=== PATIENT | female | born 1940 | race Caucasian/White ===

== ENCOUNTER 2016-07-05 22:20 | Emergency (ER) | payer OTHER ==
--- NOTE | 2016-07-06 04:01 | ED ORDER SUMMARY ---
..... Patient: NIKOLAY BARBOSA OrderSheet [facility] VisitID: [id number] [address] [place] [address] 75y, F Registration Date/Time: 07/05/2016 ORDER SHEET Weight: 69.8 kg (stated) Allergies: PCN, Sulfa Drugs GENERAL ORDERS: CBC w Diff Urgent (23:02 07/05/2016 DDavis R.N. per protocol) (Ack 23:04 Barbieekimana) (23:09 DDavis R.N.) CMP Urgent (23:02 07/05/2016 DDavis R.N. per protocol) (Ack 23:04 Luhimana) (23:09 DDavis R.N.) UA-Culture if indicated Urgent (23:02 07/05/2016 DDavis R.N. per protocol) (Ack 23:04 Silvina) (23:57 DDavis R.N.) POC Glucose (23:02 07/05/2016 DDavis R.N. per protocol) (23:09 DDavis R.N.) EKG - ER Stat (23:02 07/05/2016 DDavis R.N. per protocol) (Ack 23:04 Luhimana) (23:09 DDavis R.N.) Troponin-I Urgent (23:26 07/05/2016 Sravani HAN) (23:27 DDavis R.N.) TSH Urgent (23:26 07/05/2016 Sravani HAN) (23:27 DDavis R.N.) Lipase Urgent (23:32 07/05/2016 Sravani HAN) (Ack 23:33 Silvina) (23:44 DDavis R.N.) Troponin-I Urgent (01:51 07/06/2016 Sravani HAN) (Ack 1:57 Silvina) (4:09 JDeElena R.N.) US Abdomen Limited (Yes) Urgent (01:52 07/06/2016 Sravani HAN) (Ack 1:57 Silvina) (3:48 JDeElena R.N.) MEDICATION ORDERS: Phenergan IV 25 mg (NOW) (01:50 07/06/2016 Sravani HAN) (2:10 DDavis R.N.) IV FLUIDS: IV Saline Lock (23:02 07/05/2016 DDavis R.N. per protocol) (23:09 DDavis R.N.) IV NS : initial bolus 1000 mL (1000 mL/hr), then none - (NOW) (23:07/05/2016 Sravani HAN) (23:44 DDavis R.N.) Zofran IV 8 mg (NOW) (23:07/05/2016 Sravani HAN) (23:44 DDavis R.N.) ORDER SHEET NOTES: [Electronically signed by Teja Arteaga R.N. (04:19 07/06/2016)] [Electronically signed by Ivania Cedeño MD (13:07 07/14/2016)] [Electronically locked/signed by Teja Arteaga R.N. (04:19 07/06/2016)]
--- NOTE | 2016-07-06 04:01 | ED CLINICAL REPORT ---
Clinical Report - Physicians/Mid Levels [facility] [address] [place] [address] 07/05/2016 22:21 Patient: NIKOLAY BARBOSA Time Seen: 22:53. Arrived- By private vehicle. Historian- patient. HISTORY OF PRESENT ILLNESS Chief Complaint: VOMITING. This started about 2 days ago and is still present. No recent travel. She has had nausea, vomiting and moderate abdominal pain. The pain is described as located in the epigastrium. No diarrhea, black stools, bloody stools, constipation or flank pain. No history of possible bad food exposure, known contact with a sick individual or change in routine. Has not recently been camping or on antibiotics. The illness is described as moderate. Similar symptoms previously: None. Recent medical care: Not recently seen/assessed. REVIEW OF SYSTEMS No fever, muscle aches, difficulty with urination, dark urine or headache. No dizziness, sore throat, cough, chest pain or difficulty breathing. No excessive urination, skin rash, jaundice, back pain or fainting episodes. No blurred vision. All systems otherwise negative, except as recorded above. PAST HISTORY Problems: Asthma. Lump in lt breast, and lt flank pain. Diabetes Mellitus. Hypertension. Tetanus Status. LNMP - Last Normal Menstrual Period. Additional Surgeries: Leg surgery. Tissue removed from stomach. Wrist surgery. Medications: Metoprolol Succinate ER Oral (Tablet Extended Release 24 Hour 25 mg) 1 tablet, 50mg , day. Ranitidine HCl Oral 150 mg, daily. Zetia Oral (Tablet 10 mg) 1 tablet, day. Amitriptyline HCl Oral 10 mg, at bedtime. Fosamax Oral 70 mg, weekly. Gabapentin Oral 600mg tid . Hydrochlorothiazide Oral (Tablet 25 mg) 1 tablet, daily. Insulin Regular Human Injection 20units morn, 30units noon, 30units leslye . Lantus Subcutaneous 40units , 2x a day. Levothyroxine Sodium Oral 88 mcg, daily. Lisinopril Oral 40 mg, 2x a day. Allergies: PCN. Sulfa Drugs. SOCIAL HISTORY Never smoker. No alcohol use or drug use. ADDITIONAL NOTES The nursing notes have been reviewed. PHYSICAL EXAM Vital Signs: 07/05/2016 22:46 BP: 155/81. HR: 87. RR: 24. O2 saturation: 99%. Temp: 96.8 F. Have been reviewed. Appearance: Alert. (Pt is intermittently groaning and actively vomiting.). Eyes: Pupils equal, round and reactive to light. Eyes normal inspection. ENT: Nose normal. Neck: Normal inspection. CVS: Normal heart rate and rhythm. Heart sounds normal. Pulses normal. Respiratory: No respiratory distress. Breath sounds normal. Abdomen: Soft. Moderate tenderness in the epigastric area. No guarding or rebound tenderness. Back: Normal inspection. No CVA tenderness. Skin: Skin warm and dry. Normal skin color. No rash. Normal skin turgor. Extremities: Extremities exhibit normal ROM. No lower extremity edema. Neuro: No motor deficit. No sensory deficit. (Grossly oriented.). LABS, X-RAYS, AND EKG EKG: EKG time: (2307). No acute ischemia. Normal sinus rhythm. Rate: 77. Normal P waves. Normal DEMETRI. Normal QRS complex. Normal axis. Normal QT and QTc. Non-specific ST segment / T wave abnormalities. Prior EKG unavailable. The study has been interpreted contemporaneously by me. The study has been independently viewed by me. The EKG appears to be a good tracing. I agree with and confirm the computer reading of the EKG. Rhythm Strip #1: Time: (2311). Rate= 81. Normal sinus rhythm. Regular rhythm. Narrow QRS complexes. No ectopy. Conduction normal. Normal ST segments and T waves. The study was interpreted by me. Laboratory Tests: UA-Culture if indicated: (HEMA: 07/06/2016 00:00) ( MsgRcvd 07/06/2016 00:12) Final results Test Result Flag Units (Reference) URINE COLOR YELLOW URINE APPEARANCE CLEAR URINE GLUCOSE 1+ (NEGATIVE) URINE BILIRUBIN NEGATIVE (NEGATIVE) URINE KETONE NEGATIVE (NEGATIVE) URINE SPECIFIC GRAVITY 1.020 (1.010-1.030) URINE PH 7.5 (5.0-8.0) URINE PROTEIN 3+ (NEGATIVE) URINE UROBILINOGEN 0.2 EU/dL (0.2-1.0) URINE NITRITE NEGATIVE (NEGATIVE) URINE BLOOD 2+ (NEGATIVE) URINE LEUK ESTERASE NEGATIVE (NEGATIVE) URINE RBC 5-10 rbc/hpf (0-1) URINE WBC 0-1 wbc/hpf (0-1) URINE EPITHELIAL CELLS 0-1 EPI/hpf (0-5) URINE BACTERIA TRACE (<1+) (NONE SEEN) URINE COMMENT CULT NOT INDICATED URINE CULTURES ARE SET-UP BASED ON THE FOLLOWING CRITERIA:POSITIVE NITRITEPOSITIVE LEUKOCYTE ESTERASEGREATER THAN 10 WHITE BLOOD CELLSMODERATE (2+) OR GREATER BACTERIA Troponin-I: (HEMA: 07/06/2016 02:30) ( [facility] 07/06/2016 02:53) Final results Test Result Flag Units (Reference) TROPONIN I 0.08 ng/mL (0.00-1.5) TROPONIN REFERENCE RANGE:<0.1 NEGATIVE0.1-1.5 INDETERMINANT>1.5 POSITIVE CBC w Diff: (HEMA: 07/05/2016 23:00) ( [facility] 07/05/2016 23:10) Final results Test Result Flag Units (Reference) WHITE BLOOD COUNT 9.4 K/uL (4.5-11.5) RED BLOOD COUNT 5.07 M/uL (4.00-5.20) HEMOGLOBIN 14.7 gm/dL (12.0-16.0) HEMATOCRIT 45.3 % (36.0-46.0) MEAN CELL VOLUME 89 fL (80-100) MEAN CORPUSCULAR HGB 29 pg (26-34) MEAN CORPUSCULAR HGB CONC 33 g/dL (31-37) RED CELL DISTRIBUTION WIDTH 13.4 % (11.6-14.8) PLATELET COUNT 322 K/uL (150-400) LYMPH % 20.3 L % (25-40) MONO % 3.7 % (3-14) GRANULOCYTE % 76.0 (53-90) Lipase: (HEMA: 07/05/2016 23:00) ( [facility] 07/05/2016 23:49) Final results Test Result Flag Units (Reference) LIPASE 132 U/L (73-393) TSH: (HEMA: 07/05/2016 23:00) ( [facility] 07/05/2016 23:49) Final results Test Result Flag Units (Reference) THYROID STIMULATING HORMONE 4.015 H uIU/mL (0.30-3.74) Troponin-I: (HEMA: 07/05/2016 23:00) ( [facility] 07/05/2016 23:43) Final results Test Result Flag Units (Reference) TROPONIN I 0.07 ng/mL (0.00-1.5) TROPONIN REFERENCE RANGE:<0.1 NEGATIVE0.1-1.5 INDETERMINANT>1.5 POSITIVE CMP: (HEMA: 07/05/2016 23:00) ( [facility] 07/05/2016 23:25) Final results Test Result Flag Units (Reference) GLUCOSE 252 H mg/dL (70-110) BUN 37 H mg/dL (7-18) CREATININE 1.7 H mg/dL (0.6-1.3) Estimated GFR 31.14 mL/min Estimated GFR- 37.74 mL/min Note: Persistent reduction over 3 months in eGFR<60 mL/min/1.73 m2 defines CKD. Patients with eGFR values>=60 mL/min/1.73 m2 may also have CKD if evidence ofpersistent proteinuria. Additional information may be foundat www.kidney.org. SODIUM 138 mmol/L (136-145) POTASSIUM 4.4 mmol/L (3.5-5.1) CHLORIDE 100 mmol/L (98-107) CARBON DIOXIDE 28 mmol/L (21-32) CALCIUM 10.1 mg/dL (8.5-10.1) TOTAL PROTEIN 8.2 g/dL (6.4-8.2) ALBUMIN 3.1 L g/dL (3.3-5.0) BILIRUBIN, TOTAL 0.4 mg/dL (0.0-1.0) ALKALINE PHOSPHATASE 91 U/L (46-116) AST (SGOT) 19 U/L (15-37) ALT (SGPT) 24 U/L (12-78) . Pulse Oximetry: 07/05/2016 22:46 O2 saturation: 99%. (FIO2 - room air). Interpretation: normal. PROGRESS AND PROCEDURES Course of Care: PT was given IV fluids and Zofran for symptomatic relief. She was worked up initially with labs and an EKG. US showed no stones or gall bladder abnormalities. Labs were unremarkable, other than a slightly higher than negative troponin. Due to this result, the troponin was repeated, and was without significant change when drawn 2 1/2 hours later. Symptoms had been present for the past 2 days, and I felt that a cardiac source was unlikely, given this and the negligible change in troponin over some hours' time. Pt was improved in condition, and no emergent condition was identified. Patient counseled in person regarding the patient's stable condition, test results and diagnosis. Old medical records reviewed. Disposition: Discharged. Condition: stable and improved. CLINICAL IMPRESSION Vomiting with nausea. INSTRUCTIONS Drink plenty of fluids. (Your labs look good, overall. Your repeat heart labs did not raise concern for a heart attack. Your ultrasound shows some thick material in your gall bladder, which could turn into stones at some point; however, there are no gall stones now.). Warnings: GENERAL WARNINGS: Return or contact your physician immediately if your condition worsens or changes unexpectedly, if not improving as expected, or if other problems arise. Your Current Medications: CONTINUE TAKING THE FOLLOWING MEDICATIONS: Amitriptyline HCl Oral : 10 mg at bedtime. Fosamax Oral : 70 mg weekly. Gabapentin Oral : 600mg tid. Hydrochlorothiazide Oral : Tablet 25 mg, 1 tablet daily. Insulin Regular Human Injection : 20units morn, 30units noon, 30units leslye. Lantus Subcutaneous : 40units 2x a day. Levothyroxine Sodium Oral : 88 mcg daily. Lisinopril Oral : 40 mg 2x a day. Metoprolol Succinate ER Oral : Tablet Extended Release 24 Hour 25 mg, 1 tablet, 50mg day. Ranitidine HCl Oral : 150 mg daily. Zetia Oral : Tablet 10 mg, 1 tablet day. Prescription Medications: Zofran (orally disintegrating tablets) 4 mg: take 1-2 orally every 6 hours as needed for nausea. Dispense fifteen (15). No refill. Substitution is permissible. Follow-up: Follow up with your doctor. Call for the next available appointment. Reason for referral: Follow up ER visit. Understanding of the discharge instructions verbalized by patient. (Electronically signed by Ivania Cedeño MD 07/14/2016 13:07)
--- NOTE | 2016-07-06 04:01 | ED CLINICAL REPORT ---
Clinical Report - Physicians/Mid Levels [facility] [address] [place] [address] 07/05/2016 22:21 Patient: NIKOLAY BARBOSA Time Seen: 22:53. Arrived- By private vehicle. Historian- patient. HISTORY OF PRESENT ILLNESS Chief Complaint: VOMITING. This started about 2 days ago and is still present. No recent travel. She has had nausea, vomiting and moderate abdominal pain. The pain is described as located in the epigastrium. No diarrhea, black stools, bloody stools, constipation or flank pain. No history of possible bad food exposure, known contact with a sick individual or change in routine. Has not recently been camping or on antibiotics. The illness is described as moderate. Similar symptoms previously: None. Recent medical care: Not recently seen/assessed. REVIEW OF SYSTEMS No fever, muscle aches, difficulty with urination, dark urine or headache. No dizziness, sore throat, cough, chest pain or difficulty breathing. No excessive urination, skin rash, jaundice, back pain or fainting episodes. No blurred vision. All systems otherwise negative, except as recorded above. PAST HISTORY Problems: Asthma. Lump in lt breast, and lt flank pain. Diabetes Mellitus. Hypertension. Tetanus Status. LNMP - Last Normal Menstrual Period. Additional Surgeries: Leg surgery. Tissue removed from stomach. Wrist surgery. Medications: Metoprolol Succinate ER Oral (Tablet Extended Release 24 Hour 25 mg) 1 tablet, 50mg , day. Ranitidine HCl Oral 150 mg, daily. Zetia Oral (Tablet 10 mg) 1 tablet, day. Amitriptyline HCl Oral 10 mg, at bedtime. Fosamax Oral 70 mg, weekly. Gabapentin Oral 600mg tid . Hydrochlorothiazide Oral (Tablet 25 mg) 1 tablet, daily. Insulin Regular Human Injection 20units morn, 30units noon, 30units leslye . Lantus Subcutaneous 40units , 2x a day. Levothyroxine Sodium Oral 88 mcg, daily. Lisinopril Oral 40 mg, 2x a day. Allergies: PCN. Sulfa Drugs. SOCIAL HISTORY Never smoker. No alcohol use or drug use. ADDITIONAL NOTES The nursing notes have been reviewed. PHYSICAL EXAM Vital Signs: 07/05/2016 22:46 BP: 155/81. HR: 87. RR: 24. O2 saturation: 99%. Temp: 96.8 F. Have been reviewed. Appearance: Alert. (Pt is intermittently groaning and actively vomiting.). Eyes: Pupils equal, round and reactive to light. Eyes normal inspection. ENT: Nose normal. Neck: Normal inspection. CVS: Normal heart rate and rhythm. Heart sounds normal. Pulses normal. Respiratory: No respiratory distress. Breath sounds normal. Abdomen: Soft. Moderate tenderness in the epigastric area. No guarding or rebound tenderness. Back: Normal inspection. No CVA tenderness. Skin: Skin warm and dry. Normal skin color. No rash. Normal skin turgor. Extremities: Extremities exhibit normal ROM. No lower extremity edema. Neuro: No motor deficit. No sensory deficit. (Grossly oriented.). LABS, X-RAYS, AND EKG EKG: EKG time: (2307). No acute ischemia. Normal sinus rhythm. Rate: 77. Normal P waves. Normal DEMETRI. Normal QRS complex. Normal axis. Normal QT and QTc. Non-specific ST segment / T wave abnormalities. Prior EKG unavailable. The study has been interpreted contemporaneously by me. The study has been independently viewed by me. The EKG appears to be a good tracing. I agree with and confirm the computer reading of the EKG. Rhythm Strip #1: Time: (2311). Rate= 81. Normal sinus rhythm. Regular rhythm. Narrow QRS complexes. No ectopy. Conduction normal. Normal ST segments and T waves. The study was interpreted by me. Laboratory Tests: UA-Culture if indicated: (HEMA: 07/06/2016 00:00) ( MsgRcvd 07/06/2016 00:12) Final results Test Result Flag Units (Reference) URINE COLOR YELLOW URINE APPEARANCE CLEAR URINE GLUCOSE 1+ (NEGATIVE) URINE BILIRUBIN NEGATIVE (NEGATIVE) URINE KETONE NEGATIVE (NEGATIVE) URINE SPECIFIC GRAVITY 1.020 (1.010-1.030) URINE PH 7.5 (5.0-8.0) URINE PROTEIN 3+ (NEGATIVE) URINE UROBILINOGEN 0.2 EU/dL (0.2-1.0) URINE NITRITE NEGATIVE (NEGATIVE) URINE BLOOD 2+ (NEGATIVE) URINE LEUK ESTERASE NEGATIVE (NEGATIVE) URINE RBC 5-10 rbc/hpf (0-1) URINE WBC 0-1 wbc/hpf (0-1) URINE EPITHELIAL CELLS 0-1 EPI/hpf (0-5) URINE BACTERIA TRACE (<1+) (NONE SEEN) URINE COMMENT CULT NOT INDICATED URINE CULTURES ARE SET-UP BASED ON THE FOLLOWING CRITERIA:POSITIVE NITRITEPOSITIVE LEUKOCYTE ESTERASEGREATER THAN 10 WHITE BLOOD CELLSMODERATE (2+) OR GREATER BACTERIA Troponin-I: (HEMA: 07/06/2016 02:30) ( [facility] 07/06/2016 02:53) Final results Test Result Flag Units (Reference) TROPONIN I 0.08 ng/mL (0.00-1.5) TROPONIN REFERENCE RANGE:<0.1 NEGATIVE0.1-1.5 INDETERMINANT>1.5 POSITIVE CBC w Diff: (HEMA: 07/05/2016 23:00) ( [facility] 07/05/2016 23:10) Final results Test Result Flag Units (Reference) WHITE BLOOD COUNT 9.4 K/uL (4.5-11.5) RED BLOOD COUNT 5.07 M/uL (4.00-5.20) HEMOGLOBIN 14.7 gm/dL (12.0-16.0) HEMATOCRIT 45.3 % (36.0-46.0) MEAN CELL VOLUME 89 fL (80-100) MEAN CORPUSCULAR HGB 29 pg (26-34) MEAN CORPUSCULAR HGB CONC 33 g/dL (31-37) RED CELL DISTRIBUTION WIDTH 13.4 % (11.6-14.8) PLATELET COUNT 322 K/uL (150-400) LYMPH % 20.3 L % (25-40) MONO % 3.7 % (3-14) GRANULOCYTE % 76.0 (53-90) Lipase: (HEMA: 07/05/2016 23:00) ( [facility] 07/05/2016 23:49) Final results Test Result Flag Units (Reference) LIPASE 132 U/L (73-393) TSH: (HEMA: 07/05/2016 23:00) ( [facility] 07/05/2016 23:49) Final results Test Result Flag Units (Reference) THYROID STIMULATING HORMONE 4.015 H uIU/mL (0.30-3.74) Troponin-I: (HEMA: 07/05/2016 23:00) ( [facility] 07/05/2016 23:43) Final results Test Result Flag Units (Reference) TROPONIN I 0.07 ng/mL (0.00-1.5) TROPONIN REFERENCE RANGE:<0.1 NEGATIVE0.1-1.5 INDETERMINANT>1.5 POSITIVE CMP: (HEMA: 07/05/2016 23:00) ( [facility] 07/05/2016 23:25) Final results Test Result Flag Units (Reference) GLUCOSE 252 H mg/dL (70-110) BUN 37 H mg/dL (7-18) CREATININE 1.7 H mg/dL (0.6-1.3) Estimated GFR 31.14 mL/min Estimated GFR- 37.74 mL/min Note: Persistent reduction over 3 months in eGFR<60 mL/min/1.73 m2 defines CKD. Patients with eGFR values>=60 mL/min/1.73 m2 may also have CKD if evidence ofpersistent proteinuria. Additional information may be foundat www.kidney.org. SODIUM 138 mmol/L (136-145) POTASSIUM 4.4 mmol/L (3.5-5.1) CHLORIDE 100 mmol/L (98-107) CARBON DIOXIDE 28 mmol/L (21-32) CALCIUM 10.1 mg/dL (8.5-10.1) TOTAL PROTEIN 8.2 g/dL (6.4-8.2) ALBUMIN 3.1 L g/dL (3.3-5.0) BILIRUBIN, TOTAL 0.4 mg/dL (0.0-1.0) ALKALINE PHOSPHATASE 91 U/L (46-116) AST (SGOT) 19 U/L (15-37) ALT (SGPT) 24 U/L (12-78) . Pulse Oximetry: 07/05/2016 22:46 O2 saturation: 99%. (FIO2 - room air). Interpretation: normal. PROGRESS AND PROCEDURES Course of Care: PT was given IV fluids and Zofran for symptomatic relief. She was worked up initially with labs and an EKG. US showed no stones or gall bladder abnormalities. Labs were unremarkable, other than a slightly higher than negative troponin. Due to this result, the troponin was repeated, and was without significant change when drawn 2 1/2 hours later. Symptoms had been present for the past 2 days, and I felt that a cardiac source was unlikely, given this and the negligible change in troponin over some hours' time. Pt was improved in condition, and no emergent condition was identified. Patient counseled in person regarding the patient's stable condition, test results and diagnosis. Old medical records reviewed. Disposition: Discharged. Condition: stable and improved. CLINICAL IMPRESSION Vomiting with nausea. INSTRUCTIONS Drink plenty of fluids. (Your labs look good, overall. Your repeat heart labs did not raise concern for a heart attack. Your ultrasound shows some thick material in your gall bladder, which could turn into stones at some point; however, there are no gall stones now.). Warnings: GENERAL WARNINGS: Return or contact your physician immediately if your condition worsens or changes unexpectedly, if not improving as expected, or if other problems arise. Your Current Medications: CONTINUE TAKING THE FOLLOWING MEDICATIONS: Amitriptyline HCl Oral : 10 mg at bedtime. Fosamax Oral : 70 mg weekly. Gabapentin Oral : 600mg tid. Hydrochlorothiazide Oral : Tablet 25 mg, 1 tablet daily. Insulin Regular Human Injection : 20units morn, 30units noon, 30units leslye. Lantus Subcutaneous : 40units 2x a day. Levothyroxine Sodium Oral : 88 mcg daily. Lisinopril Oral : 40 mg 2x a day. Metoprolol Succinate ER Oral : Tablet Extended Release 24 Hour 25 mg, 1 tablet, 50mg day. Ranitidine HCl Oral : 150 mg daily. Zetia Oral : Tablet 10 mg, 1 tablet day. Prescription Medications: Zofran (orally disintegrating tablets) 4 mg: take 1-2 orally every 6 hours as needed for nausea. Dispense fifteen (15). No refill. Substitution is permissible. Follow-up: Follow up with your doctor. Call for the next available appointment. Reason for referral: Follow up ER visit. Understanding of the discharge instructions verbalized by patient. (Electronically signed by Ivania Cedeño MD 07/14/2016 13:07)
--- NOTE | 2016-07-06 04:01 | ED NURSING NOTES ---
Clinical Report - Nurses [facility] [address] [place] [address] 07/05/2016 22:21 Patient: NIKLOAY BARBOSA TRIAGE Triage time 22:46. Acuity: LEVEL 3. Chief Complaint: VOMITING and CHILLS. Alert. --22:52 Cole Holder R.N. 22:46 07/05/16. BP: 155/81. HR: 87. RR: 24 (regular and unlabored). O2 saturation: 99%. Temp: 96.8 F (temporal). --22:52 Cole Holder R.N. Weight: 69.8 kg stated. Height/Length: 61 inches Estimated. BMI: 29.1. --22:54 Cole Holder R.N. Medications Amitriptyline HCl Oral 10 mg, at bedtime. Fosamax Oral 70 mg, weekly. Gabapentin Oral 600mg tid . Hydrochlorothiazide Oral (Tablet 25 mg) 1 tablet, daily. Insulin Regular Human Injection 20units morn, 30units noon, 30units leslye . Lantus Subcutaneous 40units , 2x a day. Levothyroxine Sodium Oral 88 mcg, daily. Lisinopril Oral 40 mg, 2x a day. --22:52 Cole Holder R.N. Metoprolol Succinate ER Oral (Tablet Extended Release 24 Hour 25 mg) 1 tablet, 50mg , day. Ranitidine HCl Oral 150 mg, daily. Zetia Oral (Tablet 10 mg) 1 tablet, day. --22:52 Cole Holder R.N. Allergies PCN. Sulfa Drugs. --22:47 Cole Holder R.N. History Arrived by private vehicle. Historian: patient. Accompanied by family. Onset. (). ( pt states "I haven't been able to keep anything down" Denies having other symptoms.). She has had nausea. --22:52 Cole Holder R.N. PROBLEMS: Asthma. Lump in lt breast, and lt flank pain. Bronchospasm. Bronchitis. Sprain. Diabetes Mellitus. Hypertension. Tetanus Status. LNMP - Last Normal Menstrual Period. --22:47 Cole Holder R.N. ADDITIONAL SURGERIES: Leg surgery. Tissue removed from stomach. Wrist surgery. --22:47 Cole Holder R.N. Interventions ID band on patient. To treatment room. --22:52 Cole Holder R.N. PHYSICAL ASSESSMENT Ambulatory to room. GENERAL / NEURO / PSYCH: Alert. Oriented X 4. Appears in pain. HEENT: Mucous membranes are pink. CVS: Capillary refill less than 2 seconds. GI / : Abdomen soft. SKIN: Skin is warm and dry. --22:54 Cole Holder R.N. ( Patient vomiting. Dr. Ivania Rocha (ER Doctor) notified.). --01:20 Cole Holder R.N. 01:20 07/06/16. BP: 196/70. HR: 86. RR: 24 (regular). O2 saturation: 100% on room air. --01:20 Cole Holder R.N. 02:11 07/06/16. BP: 157/93. HR: 88 (regular). RR: 20. O2 saturation: 100% on room air. --02:12 Cole Holder R.N. NURSING PROGRESS NOTES monitor and storage bin tender, pulse oximeter and NIBP monitor placed on patient. Patient gowned. Head of bed elevated. Two patient identifiers checked. Call light placed in reach. Side rails up x 1. Bed placed in lowest position. Brakes of bed on. Patient ready for evaluation- chart flagged. Patient waiting for evaluation. --22:54 Cole Holder R.N. 22:59 07/05/2016 Site #1 started via IV in the right antecubital space with an 20g angiocath, with aseptic technique and good blood return; one attempt. Blood drawn: rainbow set. Labeled in the presence of the patient and sent to the lab. Saline lock flushed with saline. --23:09 Cole Holder R.N. Point of care testing: performed by tech. Glucose: 242. Result shown to the RN. --23:10 Cole Holder R.N. EKG time: (23:07 Jul 05 2016). EKG was performed by a tech and shown to the ED physician. --23:12 Aguilar Barr 23:39 07/05/2016 Started bag #1 1000 mL IV Fluids IV NS (Saline); at 1000 mL/hr over 1 hour(s) via site #1 --23:44 Cole Holder R.N. 23:39 07/05/2016 Zofran (Ondansetron HCl) IVP 8 mg given over 2 minute(s) via site #1. Allergies verified and confirmed 5 rights. IV patency established. IV site checked: no pain, redness, or swelling. IV flushed thoroughly pre- and post-medication administration. IVP given by RN. --23:44 Cole Holder R.N. ( Patient ambulated to bathroom to provide urine sample, cup given with instructions.). --23:46 Cole Holder R.N. ( patient helped to bedside commode). --01:26 Cole Holder R.N. 02:05 07/06/2016 PHENERGAN (Promethazine HCl) IVP 25 mg given over 2 minute(s) via site #1. Allergies verified and confirmed 5 rights. IV patency established. IV site checked: no pain, redness, or swelling. IV flushed thoroughly pre- and post-medication administration. IVP given by RN. --02:10 Cole Holder R.N. DISPOSITION / DISCHARGE Departure time: 04:18. Condition at departure: stable. The goals identified in the patient's plan of care were met. No learning barriers present. Discharge instructions provided and reviewed with the patient and family (Daughter). Reviewed medication(s) side effects, precautions, dosing and course information. Prescription(s) given to the cooperative education director. Patient and family verbalized understanding. Written instructions provided in Telugu. Verbalized understanding (Daughter). ( Nikolay and her daughter verbalize understanding of all d/c instructions including need to f/u with PCP. They have no questions and voice no concerns at this time.). The patient was discharged by the physician. She was discharged home and accompanied by family. She left the Emergency Department ambulatory and via private vehicle. Family member driving. HELEN COMA SCORE: Lu[place] Coma Scale: 15- eyes open spontaneously (4); best verbal response- oriented x 4 (5); best motor response- obeys commands (6). --04:18 Teja Arteaga R.N. 04:17 07/06/16. BP: 150/74 (regular adult cuff) taken on the left arm, via an automated monitor, while sitting. HR: 95 (normal rate). RR: 16 (regular, unlabored and normal). O2 saturation: 100% on room air. Temp: 97.7 F (oral). Pain level now: 01/13. --04:18 Teja Arteaga R.N. 04:18 07/06/2016 Site #1 removed upon discharge. Catheter intact. Bandaid applied. --04:18 Teja Arteaga R.N. Locked/Released at 07/06/2016 4:19 by Teja Arteaga R.N.
--- NOTE | 2016-07-06 04:01 | ED ORDER SUMMARY ---
..... Patient: NIKOLAY BARBOSA OrderSheet [facility] VisitID: [id number] [address] [place] [address] 75y, F Registration Date/Time: 07/05/2016 ORDER SHEET Weight: 69.8 kg (stated) Allergies: PCN, Sulfa Drugs GENERAL ORDERS: CBC w Diff Urgent (23:02 07/05/2016 DDavis R.N. per protocol) (Ack 23:04 Barbieekimana) (23:09 DDavis R.N.) CMP Urgent (23:02 07/05/2016 DDavis R.N. per protocol) (Ack 23:04 Luhimana) (23:09 DDavis R.N.) UA-Culture if indicated Urgent (23:02 07/05/2016 DDavis R.N. per protocol) (Ack 23:04 Silvina) (23:57 DDavis R.N.) POC Glucose (23:02 07/05/2016 DDavis R.N. per protocol) (23:09 DDavis R.N.) EKG - ER Stat (23:02 07/05/2016 DDavis R.N. per protocol) (Ack 23:04 Luhimana) (23:09 DDavis R.N.) Troponin-I Urgent (23:26 07/05/2016 Sravani HAN) (23:27 DDavis R.N.) TSH Urgent (23:26 07/05/2016 Sravani HAN) (23:27 DDavis R.N.) Lipase Urgent (23:32 07/05/2016 Sravani HAN) (Ack 23:33 Silvina) (23:44 DDavis R.N.) Troponin-I Urgent (01:51 07/06/2016 Sravani HAN) (Ack 1:57 Silvina) (4:09 JDeElena R.N.) US Abdomen Limited (Yes) Urgent (01:52 07/06/2016 Sravani HAN) (Ack 1:57 Silvina) (3:48 JDeElena R.N.) MEDICATION ORDERS: Phenergan IV 25 mg (NOW) (01:50 07/06/2016 Sravani HAN) (2:10 DDavis R.N.) IV FLUIDS: IV Saline Lock (23:02 07/05/2016 DDavis R.N. per protocol) (23:09 DDavis R.N.) IV NS : initial bolus 1000 mL (1000 mL/hr), then none - (NOW) (23:07/05/2016 Sravani HAN) (23:44 DDavis R.N.) Zofran IV 8 mg (NOW) (23:07/05/2016 Sravani HAN) (23:44 DDavis R.N.) ORDER SHEET NOTES: [Electronically signed by Teja Arteaga R.N. (04:19 07/06/2016)] [Electronically signed by Ivania Cedeño MD (13:07 07/14/2016)] [Electronically locked/signed by Teja Arteaga R.N. (04:19 07/06/2016)]
--- NOTE | 2016-07-06 08:32 | DIAGNOSTIC IMAGING REPORT ---
PROCEDURE: US ABDOMEN ULTRASOUND-LIMITED INDICATION: Epigastric pain. TECHNIQUE: Britt scale and color Doppler sonographic images of the abdomen were obtained. COMPARISON: Comparison made abdominal ultrasound on 04/02/2012. FINDINGS: Study is partially limited due to body habitus. Findings suggest probable visualization of the gallbladder with biliary sludge and probable gallstone. Borderline gallbladder wall thickening (3 mm). Common duct is normal (4 mm). Mild increased echogenicity of the liver. The pancreas is partially obscured by bowel gas. Portions of the aorta and right kidney are seen, and are normal. IMPRESSION: 1. Study is partially limited due to body habitus. 2. Findings suggest biliary sludge and probable gallstone. An underlying soft tissue mass is less likely, although still a consideration. Based on these findings, CT would be recommended to further evaluate (especially if surgical intervention is considered). 3. Fatty infiltration of the liver. 4. Findings discussed with Dr. Ivania Cedeño.
--- NOTE | 2016-07-14 13:07 | ED MAR SUMMARY ---
..... Medication Administration Record [facility] [address] [place] [address] Patient: NIKOLAY BARBOSA Visit ID: [id number] 75y, F Weight: 69.8 kg Height/Length: 61 in BMI: 29.1 ALLERGIES: PCN, Sulfa Drugs Start 23:39 07/05/2016 Coel Holder R.N. Medication Administered: IV NS (SALINE), Dose: IV Fluids over 1 hour(s), Rate: 1000 mL/hr, Dispensed: 1000 mL bag, Site: #1 right AC. Medication Ordered: IV NS : initial bolus 1000 mL (1000 mL/hr), then none - (NOW). Given 23:39 07/05/2016 Cole Holder R.N. Medication Administered: ZOFRAN [IVP] (ONDANSETRON HCL), Dose: 8 mg IVP over 2 minute(s), Site: #1 right AC. Medication Ordered: Zofran IV 8 mg (NOW). Given 02:05 07/06/2016 Cole Holder R.N. Medication Administered: PHENERGAN [IVP] (PROMETHAZINE HCL), Dose: 25 mg IVP over 2 minute(s), Site: #1 right AC. Medication Ordered: Phenergan IV 25 mg (NOW).
--- NOTE | 2016-07-14 13:07 | ED MED RECONCILIATION SUMMARY ---
Patient: NIKOLAY BARBOSA Medication Reconciliation Report [facility] VisitID: [id number] [address] [place] [address] 75y, F Registration Date/Time: 07/05/2016 Weight: 69.8 kg Height/Length: 61 in. BMI: 29.1 ALLERGIES: PCN, Sulfa Drugs The patient's Home Medications are listed below: CONTINUE TAKING THE FOLLOWING MEDICATIONS: Amitriptyline HCl Oral 10 mg, at bedtime Fosamax Oral 70 mg, weekly Gabapentin Oral 600mg tid Hydrochlorothiazide Oral (25 mg) 1 tablet, daily Insulin Regular Human Injection 20units morn, 30units noon, 30units leslye Lantus Subcutaneous 40units , 2x a day Levothyroxine Sodium Oral 88 mcg, daily Lisinopril Oral 40 mg, 2x a day Metoprolol Succinate ER Oral (25 mg) 1 tablet, 50mg , day Ranitidine HCl Oral 150 mg, daily Zetia Oral (10 mg) 1 tablet, day The source(s) of the original Home Medication information: Not obtained. The following Medications were given to the patient in the Emergency Department: IV NS IV Fluids bolus 0, then 1000 mL/hr, administered: 07/05/2016 11:39:00 PM Zofran [IVP] IVP 8 mg, administered: 07/05/2016 11:39:00 PM PHENERGAN [IVP] IVP 25 mg, administered: 07/06/2016 2:05:00 AM The following Medications were prescribed to the patient: Zofran (orally disintegrating tablets) 4 mg: take 1-2 orally every 6 hours as needed for nausea. Dispense fifteen (15). No refill. Substitution is permissible. -- Ivania Cedeño MD
--- NOTE | 2016-07-14 13:07 | ED MED RECONCILIATION SUMMARY ---
Patient: NIKOLAY BARBOSA Medication Reconciliation Report [facility] VisitID: [id number] [address] [place] [address] 75y, F Registration Date/Time: 07/05/2016 Weight: 69.8 kg Height/Length: 61 in. BMI: 29.1 ALLERGIES: PCN, Sulfa Drugs The patient's Home Medications are listed below: CONTINUE TAKING THE FOLLOWING MEDICATIONS: Amitriptyline HCl Oral 10 mg, at bedtime Fosamax Oral 70 mg, weekly Gabapentin Oral 600mg tid Hydrochlorothiazide Oral (25 mg) 1 tablet, daily Insulin Regular Human Injection 20units morn, 30units noon, 30units leslye Lantus Subcutaneous 40units , 2x a day Levothyroxine Sodium Oral 88 mcg, daily Lisinopril Oral 40 mg, 2x a day Metoprolol Succinate ER Oral (25 mg) 1 tablet, 50mg , day Ranitidine HCl Oral 150 mg, daily Zetia Oral (10 mg) 1 tablet, day The source(s) of the original Home Medication information: Not obtained. The following Medications were given to the patient in the Emergency Department: IV NS IV Fluids bolus 0, then 1000 mL/hr, administered: 07/05/2016 11:39:00 PM Zofran [IVP] IVP 8 mg, administered: 07/05/2016 11:39:00 PM PHENERGAN [IVP] IVP 25 mg, administered: 07/06/2016 2:05:00 AM The following Medications were prescribed to the patient: Zofran (orally disintegrating tablets) 4 mg: take 1-2 orally every 6 hours as needed for nausea. Dispense fifteen (15). No refill. Substitution is permissible. -- Ivania Cedeño MD
--- NOTE | 2016-07-14 13:07 | ED MAR SUMMARY ---
..... Medication Administration Record [facility] [address] [place] [address] Patient: NIKOLAY BARBOSA Visit ID: [id number] 75y, F Weight: 69.8 kg Height/Length: 61 in BMI: 29.1 ALLERGIES: PCN, Sulfa Drugs Start 23:39 07/05/2016 Cole Holder R.N. Medication Administered: IV NS (SALINE), Dose: IV Fluids over 1 hour(s), Rate: 1000 mL/hr, Dispensed: 1000 mL bag, Site: #1 right AC. Medication Ordered: IV NS : initial bolus 1000 mL (1000 mL/hr), then none - (NOW). Given 23:39 07/05/2016 Cole Holder R.N. Medication Administered: ZOFRAN [IVP] (ONDANSETRON HCL), Dose: 8 mg IVP over 2 minute(s), Site: #1 right AC. Medication Ordered: Zofran IV 8 mg (NOW). Given 02:05 07/06/2016 Cole Holder R.N. Medication Administered: PHENERGAN [IVP] (PROMETHAZINE HCL), Dose: 25 mg IVP over 2 minute(s), Site: #1 right AC. Medication Ordered: Phenergan IV 25 mg (NOW).
--- NOTE | 2016-07-14 13:07 | ED DISCHARGE INSTRUCTIONS ---
Patient: NIKOLAY BARBOSA General Instructions [facility] VisitID: [id number] [place] [address] 75y, F Registration Date/Time: 07/05/2016 Vomiting with nausea. INSTRUCTIONS Drink plenty of fluids. (Your labs look good, overall. Your repeat heart labs did not raise concern for a heart attack. Your ultrasound shows some thick material in your gall bladder, which could turn into stones at some point; however, there are no gall stones now.). Warnings: GENERAL WARNINGS: Return or contact your physician immediately if your condition worsens or changes unexpectedly, if not improving as expected, or if other problems arise. Your Current Medications: CONTINUE TAKING THE FOLLOWING MEDICATIONS: Amitriptyline HCl Oral : 10 mg at bedtime. Fosamax Oral : 70 mg weekly. Gabapentin Oral : 600mg tid. Hydrochlorothiazide Oral : Tablet 25 mg, 1 tablet daily. Insulin Regular Human Injection : 20units morn, 30units noon, 30units leslye. Lantus Subcutaneous : 40units 2x a day. Levothyroxine Sodium Oral : 88 mcg daily. Lisinopril Oral : 40 mg 2x a day. Metoprolol Succinate ER Oral : Tablet Extended Release 24 Hour 25 mg, 1 tablet, 50mg day. Ranitidine HCl Oral : 150 mg daily. Zetia Oral : Tablet 10 mg, 1 tablet day. Prescription Medications: Zofran (orally disintegrating tablets) 4 mg: take 1-2 orally every 6 hours as needed for nausea. Dispense fifteen (15). No refill. Substitution is permissible. Follow-up: Follow up with your doctor. Call for the next available appointment. Reason for referral: Follow up ER visit. Understanding of the discharge instructions verbalized by patient. ADDITIONAL INFORMATION Vomiting [6Yr-Adult] Vomiting is a common symptom that may be due to different causes. These include gastroenteritis ("stomach flu"), food poisoning and gastritis. There are other more serious causes of vomiting which may be hard to diagnose early in the illness. Therefore, it is important to watch for the warning signs listed below. The main danger from repeated vomiting is dehydration. This is due to excess loss of water and minerals from the body. When this occurs, body fluids must be replaced. Home Care: If symptoms are severe, rest at home for the next 24 hours. You may use acetaminophen (Tylenol) or ibuprofen (Motrin, Advil) to control fever, unless another medicine was prescribed. [NOTE : If you have chronic liver or kidney disease or ever had a stomach ulcer or GI bleeding, talk with your doctor before using these medicines.] (Aspirin should never be used in anyone under 18 years of age who is ill with a fever. It may cause severe liver damage.) Avoid tobacco and alcohol use, which may worsen your symptoms. If medicines for vomiting were prescribed, take as directed. Once vomiting stops, then follow these guidelines: During The First 12-24 Hours follow the diet below: FRUIT JUICES: Apple, grape juice, clear fruit drinks, and electrolyte replacement drinks. BEVERAGES: Soft drinks without caffeine; mineral water (plain or flavored), decaffeinated tea and coffee. SOUPS: Clear broth, consomm and bouillon DESSERTS: Plain gelatin, popsicles and fruit juice bars. As you feel better, you may add 6-8 ounces of yogurt per day. During The Next 24 Hours you may add the following to the above: Hot cereal, plain toast, bread, rolls, crackers Plain noodles, rice, mashed potatoes, chicken noodle or rice soup Unsweetened canned fruit (avoid pineapple), bananas Limit caffeine and chocolate. No spices or seasonings except salt. During The Next 24 Hours Gradually resume a normal diet, as you feel better and your symptoms lessen. Follow Up with your doctor as advised if you are not improving over the next 2-3 days. Get Prompt Medical Attention if any of the following occur: Constant right-sided lower abdominal pain or increasing general abdominal pain Continued vomiting (unable to keep liquids down) for 24 hours Frequent diarrhea (more than 5 times a day); blood (red or black color) or mucus in diarrhea Reduced urine output or extreme thirst Weakness, dizziness or fainting Unusually drowsy or confused Fever of 100.4F (38C) oral or higher, not better with fever medication Yellow color of the eyes or skin You have been given the following additional information: Vomiting (6Y-Adult) (Electronically signed by Ivania Cedeño MD 07/14/2016 13:07)
== END 2016-07-06 04:18 | disposition home or self-care (01) ==
LOC: ED SRH 22:20
DX: R11.2 Nausea with vomiting, unspecified (principal); Z88.2 Allergy status to sulfonamides; R10.13 Epigastric pain; I10 Essential (primary) hypertension; E11.9 Type 2 diabetes mellitus without complications; J45.909 Unspecified asthma, uncomplicated; Z79.899 Other long term (current) drug therapy; Z79.51 Long term (current) use of inhaled steroids; Z79.4 Long term (current) use of insulin; Z88.0 Allergy status to penicillin
CPT/HCPCS: 90004; 90074; 90100; 90616; 92235; 93140; 95059

== ENCOUNTER 2016-09-21 09:19 | Emergency (ER) | payer OTHER ==
--- NOTE | 2016-09-21 10:30 | DIAGNOSTIC IMAGING REPORT ---
PROCEDURE: XR CHEST 1 VIEW INDICATION: TACHYCARDIA TECHNIQUE: Portable AP view (1005 hours). COMPARISON: Compared to chest x-ray on 02/09/2016. FINDINGS: Allowing for overlying wires and electrodes, lungs are clear. Heart and mediastinum are normal. Thorax is normal. IMPRESSION: 1. Negative chest.
--- NOTE | 2016-09-21 13:29 | DIAGNOSTIC IMAGING REPORT ---
PROCEDURE: CT HEAD WITHOUT CONTRAST INDICATION: MENTAL STATUS CHANGE TECHNIQUE: Noncontrast axial images with sagittal and coronal reformations. COMPARISON: None. FINDINGS: There is a 2.5 cm old right frontal lobe infarct. There are moderate old small vessel and atrophic changes. There is a 2 cm osseous excrescence along the inner table of the right frontal bone consistent with meningioma or exostosis. No evidence of an acute process or hemorrhage. Sinuses and mastoids are normal. IMPRESSION: 1. 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 2. Moderate old small vessel disease and atrophic changes. 3. There is a 2 cm osseous excrescence of the inner table of the right frontal bone consistent with meningioma or exostosis. 4. No evidence of acute process. 5. Findings discussed with Dr. Last Newman at [address] scans at this facility use dose modulation, iterative reconstruction, and/or weight-based dosing when appropriate to reduce radiation dose to as low as reasonably achievable.
--- NOTE | 2016-09-21 13:39 | ED NURSING NOTES ---
Clinical Report - Nurses [facility] [address] [place] [address] 09/21/2016 9:20 [id number] Triage time 09:32. Acuity: LEVEL 4. Chief Complaint: NAUSEA and VOMITING. Alert. No acute distress. SEPSIS SCREEN: Sepsis Screen. Negative (no infection suspected/documented). ROBIN COMA SCORE: Robin Coma Scale: 15- eyes open spontaneously (4); best verbal response- oriented x 4 (5); best motor response- obeys commands (6). --09:46 Natalie Newton R.N. 09:43 09/21/16. BP: 119/64. HR: 137. RR: 18. O2 saturation: 97%. Pain level now 0/10. --09:46 Natalie Newton R.N. 09:57 09/21/16. Temp: 98.3 F. --09:57 Natalie Newton R.N. Acuity: LEVEL 2. --10:36 Natalie Newton R.N. Weight: 58.9 kg estimated. Height/Length: 60 inches Estimated. BMI: 25.4. --09:45 Natalie Newton R.N. Medications Amitriptyline HCl Oral 10 mg, at bedtime. Fosamax Oral 70 mg, weekly. Gabapentin Oral 600mg tid . Hydrochlorothiazide Oral (Tablet 25 mg) 1 tablet, daily. Insulin Regular Human Injection 20units morn, 30units noon, 30units leslye . Lantus Subcutaneous 40units , 2x a day. Levothyroxine Sodium Oral 88 mcg, daily. Lisinopril Oral 40 mg, 2x a day. Metoprolol Succinate ER Oral (Tablet Extended Release 24 Hour 25 mg) 1 tablet, 50mg , day. Ranitidine HCl Oral 150 mg, daily. Zetia Oral (Tablet 10 mg) 1 tablet, day. --09:43 Natalie Newton R.N. Allergies PCN. Sulfa Drugs. --09:43 Natalie Newton R.N. History Arrived by private vehicle. Historian: patient. Accompanied by family. Primary physician (Dr. Fernandez). Onset. (2 days ago). 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 PAST MEDICAL HX: Immunizations: up-to-date. SOCIAL HX: Never smoker. No alcohol use or drug use. No recent travel. No known contact with a sick individual. ABUSE ASSESSMENT: Abuse assessment: The patient was asked "Do you feel safe in your home?" and "Has anyone hurt you or threatened to hurt you?". No report of abuse. SELF HARM ASSESSMENT: A self harm assessment was performed. The patient answered "no" to the question "Do you have thoughts of harming or killing yourself?" and "Have you recently had thoughts about harming or killing others?". NUTRITIONAL RISK ASSESSMENT: The nutritional risk assessment revealed no deficiencies. FUNCTIONAL ASSESSMENT: Functional assessment: no impairments noted. LEARNING NEEDS ASSESSMENT: The learning needs assessment revealed no barriers. --09:46 Natalie Newton R.N. PROBLEMS: Vomiting. Asthma. Lump in lt breast, and lt flank pain. Bronchospasm. Bronchitis. Fall. Sprain. Diabetes Mellitus. Hypertension. --09:44 Natalie Newton R.N. ADDITIONAL SURGERIES: Leg surgery. Tissue removed from stomach. Wrist surgery. --09:44 Natalie Newton R.N. Interventions ID band on patient. Ambulatory. --09:46 Natalie Newton R.N. PHYSICAL ASSESSMENT Ambulatory to room. GENERAL / NEURO / PSYCH: Alert. Oriented X 4. Appears in no acute distress. HEENT: Mucous membranes are pink. RESPIRATORY: Respirations not labored. CVS: Capillary refill less than 2 seconds. GI / : Abdomen soft. Abdominal tenderness in the lower abdomen. SKIN: Skin is warm and dry. --09:47 Natalie Newton R.N. SKIN: Skin is diaphoretic. ( correction to prior:). --09:57 Natalie Newton R.N. NURSING PROGRESS NOTES Patient gowned. Head of bed elevated. Patient ID band checked for patient name, birthdate and medical record number: patient confirmed. Instructions provided to collect clean catch urine and patient verbalized understanding. Clean catch urine collected with return of yellow-colored clear urine; sample sent to lab for urinalysis. Specimen labeled in the presence of the patient. Two patient identifiers checked. Call light placed in reach. Side rails up x 2. Bed placed in lowest position. Brakes of bed on. Patient ready for evaluation- chart flagged. --09:47 Natalie Newton R.N. animal laboratory technician, pulse oximeter and NIBP monitor placed on patient; barrel endshaker adjuster- Lead II; monitor alarms on. --09:47 Natalie Newton R.N. 09:50 09/21/2016 Site #1 started via IV in the right wrist with an 20g angiocath, with aseptic technique and good blood return; one attempt. Blood drawn: rainbow set and cultures x1. Labeled in the presence of the patient and sent to the lab. Saline lock flushed with 10 mL saline (accessed by Anali Saul RN). --09:59 Natalie Newton R.N. ( Lactate drawn during IV start.). --09:59 Natalie Newton R.N. EKG time: (954). EKG was ordered, performed by a nurse and shown to the ED physician. --09:59 Natalie Newton R.N. 10:00 09/21/16. HR: 122 (regular and tachycardic). --10:00 Natalie Newton R.N. ( portable chest xray done at the bedside.). --10:03 Natalie Newton R.N. ( POC BS: >500. Provider aware.). --10:09 Natalie Newton R.N. ( POC glucose >500 mg/dL). --10:10 Herminia Palencia ( Moved to room 2). --10:24 Colton Osborne R.N. 10:24 09/21/16. BP: 134/67. HR: 128. RR: 25. O2 saturation: 96%. --10:25 Colton Osborne R.N. Cardiac rhythm: sinus tachycardia. --10:25 Colton Osborne R.N. 10:21 09/21/2016 Started bag #1 1000 mL IV Fluids IV NS (Saline); at 999 mL/hr over 1 hour(s) via site #1. Allergies verified and confirmed 5 rights. IV patency established. IV site checked: no pain, redness, or swelling. IV flushed thoroughly pre- and post-medication administration. Completed per protocol. --10:26 Colton Osborne R.N. ( POC BS > 500. Provider aware. Pt. remains on insulin drip.). --10:42 Colton Osborne R.N. 10:42 09/21/2016 Started 2 unit of Insulin Reg Drip IV in bag #1 100 mL; at 2 unit/hr over 50 hour(s) via site #1 via IV pump. Allergies verified and confirmed 5 rights. IV patency established. IV site checked: no pain, redness, or swelling. IV flushed thoroughly pre- and post-medication administration (IV bolus 10 units given @ 10:44. Orders verified by FABIO Dean.). --10:45 Natalie Newton R.N. 10:47 09/21/16. BP: 126/81. HR: 125 (regular and tachycardic). RR: 25. O2 saturation: 100% on nasal cannula at 4 liters/minute. End tidal CO2: 21 mmHg. --10:49 Natalie Newton R.N. ( pt c/o nausea.). --10:49 Natalie Newton R.N. 10:35. --10:54 Natalie Newton R.N. 10:35 09/21/16. HR: 128. O2 saturation: 70%. Additional comments: Pt. placed on 4L NC. Provider notified. . --10:54 Natalie Newton R.N. 10:55 09/21/2016 Site #2 started via IV in the left antecubital space with an 20g angiocath, with aseptic technique and good blood return; one attempt. Blood drawn: rainbow set and cultures x2. Labeled in the presence of the patient and sent to the lab. Saline lock flushed with 10 mL saline (accessed by FABIO Dean). --10:55 Natalie Newton R.N. 10:55 09/21/16. BP: 126/81. HR: 124. RR: 36. O2 saturation: 100% on nasal cannula at 4 liters/minute. --10:55 Natalie Newton R.N. 11:00 09/21/2016 Zofran (Ondansetron HCl) IVP 8 mg given over 2 minute(s) via site #2. Allergies verified and confirmed 5 rights. IV patency established. IV site checked: no pain, redness, or swelling. IV flushed thoroughly pre- and post-medication administration. --11:00 Natalie Newton R.N. Critical value relayed to ED by labor gang supervisor. Critical value received by Natalie Penaloza RN. Lactate level: 8.1. Critical value read back. Verified lab result and patient ID. Patient ID band checked for patient name, birthdate and medical record number: patient confirmed. ED physician notifed of critical value. --11:10 Natalie Newton R.N. 11:15 09/21/16. Critical value relayed to ED by Lab. Critical value received by FABIO Briones. Glucose: 1085. Critical value read back. Verified lab result and patient ID. ED physician notifed of critical value. Orders were received. --11:15 Anali Perea R.N. 11:49 09/21/2016 IV Fluids IV NS Bag Change: bag #1 infused. Total amount infused: 1000. STARTED bag #2 (1000 mL) at 1000 mL/hr via IV pump. Confirmed 5 rights. IV patency established. IV site checked: no pain, redness, or swelling. IV flushed thoroughly. --11:49 Joana Mims R.N. 11:41 09/21/16. BP: 147/68. HR: 120. RR: 26. O2 saturation: 98%. --11:59 Joana Mims R.N. Patient transported to NC by stretcher. (11:58). --12:01 Joana Mims R.N. 11:20 09/21/2016 Started 4 unit of Insulin Reg Drip IV in bag #1 100 mL; at 4 unit/hr over 4 hour(s) via site #1 via IV pump. Allergies verified and confirmed 5 rights. IV patency established. IV site checked: no pain, redness, or swelling. IV flushed thoroughly pre- and post-medication administration. --12:32 Anali Perea R.N. 12:22 09/21/2016 Started 2 gm of Ceftriaxone IVPB in bag #1 50 mL; at 100 mL/hr over 30 minute(s) via site #2 via IV pump. Allergies verified and confirmed 5 rights. IV patency established. IV site checked: no pain, redness, or swelling. IV flushed thoroughly pre- and post-medication administration. --12:23 Joana Mims R.N. 12:41 09/21/16. BP: 145/66. HR: 108 (regular and tachycardic). RR: 21. O2 saturation: 98% on nasal cannula at 4 liters/minute. --12:43 Natalie Newton R.N. ( POC BS > 500.). --12:43 Natalie Newton R.N. 11:10 POC BS >500. --12:44 Natalie Newton R.N. 11:40 POC BS > 500. --12:44 Natalie Newton R.N. 12:47 09/21/2016 Ceftriaxone IVPB Discontinued: infused. Total amount infused: 50 mL. IV patency established. IV site checked: no pain, redness, or swelling. IV flushed thoroughly. --12:47 Natalie Newton R.N. 12:56 09/21/2016 Started bag #3 1000 mL IV Fluids IV NS (Saline); at 100 mL/hr over 5 hour(s) via site #1 via IV pump. Allergies verified and confirmed 5 rights. IV patency established. IV site checked: no pain, redness, or swelling. IV flushed thoroughly pre- and post-medication administration (v.o. for rate change to 100ml/hr). --12:56 Natalie Newton R.N. 12:56 09/21/2016 IV Fluids IV NS Discontinued: bag #2 infused. Total amount infused: 1000 mL. IV patency established. IV site checked: no pain, redness, or swelling. IV flushed thoroughly. --12:57 Natalie Newton R.N. <<STRICKEN ENTRY-- 12:57 09/21/2016 IV Fluids IV NS Discontinued: bag #2 infused. Total amount infused: 1000 mL. IV patency established. IV site checked: no pain, redness, or swelling. IV flushed thoroughly. --12:57 Natalie Newton R.N. --END STRIKE>> Other. --12:57 Natalie Newton R.N. Critical value relayed to ED by Shana: labor gang supervisor. Critical value received by Natalie Newton. Calcium: >5. Critical value read back. Verified lab result and patient ID. Patient ID band checked for patient name, birthdate and medical record number: patient confirmed. ED physician notifed of critical value. --13:03 Natalie Newton R.N. Critical value relayed to ED by labor gang supervisor. Critical value received by Natalie Tijerina CSF: wbc:29, rbc:36. Critical value read back. Verified lab result. Patient ID band checked for patient name, birthdate and medical record number: patient confirmed. ED physician notifed of critical value. --13:15 Natalie Newton R.N. ( precaution cart and sign placed in front of room.). --13:20 Natalie Newton R.N. ( 13:03 lab notified for re-draw of calcium levels.). --13:22 Nataile Newton R.N. Reassessment after fluids administered and medication administered. She has had no adverse reaction. Overall patient status- she states feels better. Patient and family informed about reason for wait and about plan of care. --13:54 Natalie Newton R.N. 13:52 17. BP: 131/65. HR: 106. RR: 25. O2 saturation: 98%. Temp: 98.0 F. End tidal CO2: 27mmHg. Pain level now 0/10. --13:54 Natalie Newton R.N. ( POC BS: >500mg/dL.). --13:57 Natalie Newton R.N. Critical value relayed to ED by labor gang supervisor. Critical value received by Natalie Tijerina calcium: 8.8. Glucose: 681. Critical value read back. Verified lab result and patient ID. Patient ID band checked for patient name, birthdate and medical record number. --14:11 Natalie Newton R.N. 14:14 09/21/2016 Started 2 unit of Insulin Reg Drip IV in bag #1 100 mL; at 2 unit/hr over 4 hour(s) via site #1 via IV pump. Allergies verified and confirmed 5 rights. IV patency established. IV site checked: no pain, redness, or swelling. IV flushed thoroughly pre- and post-medication administration. --14:16 Natalie Newton R.N. 14:35. ( pt vomiting. orders received.). --14:39 Natalie Newton R.N. 14:40 09/21/2016 Reglan (Metoclopramide HCl) IVP 10 mg given over 2 minute(s) via site #2. Allergies verified and confirmed 5 rights. IV patency established. IV site checked: no pain, redness, or swelling. IV flushed thoroughly pre- and post-medication administration. --14:40 Natalie Newton R.N. 14:42 09/21/2016 IV Fluids IV NS Continued: upon transfer at the rate of 100 mL/hr. 900 mL remaining bag #3. IV patency established. IV site checked: no pain, redness, or swelling. IV flushed thoroughly. --14:42 Natalie Newton R.N. 14:43 09/21/2016 Insulin Reg Drip IV Continued: upon transfer at the rate of 2 unit/hr. 75 mL remaining. IV patency established. IV site checked: no pain, redness, or swelling. IV flushed thoroughly. --14:43 Natalie Newton R.N. Intake & Output Urine: 180, with return of yellow-colored clear urine. --12:40 Natalie Newton R.N. DISPOSITION / DISCHARGE 14:40 09/21/16. BP: 141/69. HR: 112. RR: 21. O2 saturation: 97% on nasal cannula at 4 liters/minute. Temp: 98.0 F. Pain level now: 0/10. --14:41 Natalie Newton R.N. ( POC BS: 438mg/dL). --14:59 Natalie Newton R.N. 14:45. Transferred to [facility]. Summary of care provided to transport team (report given to FABIO Moreno). --15:07 Natalie Newton R.N. 14:45. Patient's personal items; items were placed in belongings bag, given to the patient and transported with the patient. --15:07 Natalie Newton R.N. Departure time: 1445. --15:08 Natalie Newton R.N. Medication list reviewed and validated. --15:08 Natalie Newton R.N. ( attempt to call report to RN at [facility]. RN to call back.). --15:15 Natalie Newton R.N. ( attempt to call report to RN at [facility]. RN unavailable at this time.). --15:57 Natalie Newton R.N. Locked/Released at 09/21/2016 15:57 by Natalie Newton R.N.
--- NOTE | 2016-09-21 13:39 | ED NURSING NOTES ---
Clinical Report - Nurses [facility] [address] [place] [address] 09/21/2016 9:20 [id number] Triage time 09:32. Acuity: LEVEL 4. Chief Complaint: NAUSEA and VOMITING. Alert. No acute distress. SEPSIS SCREEN: Sepsis Screen. Negative (no infection suspected/documented). ROBIN COMA SCORE: Robin Coma Scale: 15- eyes open spontaneously (4); best verbal response- oriented x 4 (5); best motor response- obeys commands (6). --09:46 Natalie Newton R.N. 09:43 09/21/16. BP: 119/64. HR: 137. RR: 18. O2 saturation: 97%. Pain level now 0/10. --09:46 Natalie Newton R.N. 09:57 09/21/16. Temp: 98.3 F. --09:57 Natalie Newton R.N. Acuity: LEVEL 2. --10:36 Natalie Newton R.N. Weight: 58.9 kg estimated. Height/Length: 60 inches Estimated. BMI: 25.4. --09:45 Natalie Newton R.N. Medications Amitriptyline HCl Oral 10 mg, at bedtime. Fosamax Oral 70 mg, weekly. Gabapentin Oral 600mg tid . Hydrochlorothiazide Oral (Tablet 25 mg) 1 tablet, daily. Insulin Regular Human Injection 20units morn, 30units noon, 30units leslye . Lantus Subcutaneous 40units , 2x a day. Levothyroxine Sodium Oral 88 mcg, daily. Lisinopril Oral 40 mg, 2x a day. Metoprolol Succinate ER Oral (Tablet Extended Release 24 Hour 25 mg) 1 tablet, 50mg , day. Ranitidine HCl Oral 150 mg, daily. Zetia Oral (Tablet 10 mg) 1 tablet, day. --09:43 Natalie Newton R.N. Allergies PCN. Sulfa Drugs. --09:43 Natalie Newton R.N. History Arrived by private vehicle. Historian: patient. Accompanied by family. Primary physician (Dr. Fernandez). Onset. (2 days ago). Treatment [employer]GE[employer]: None. PAST MEDICAL HX: Immunizations: up-to-date. SOCIAL HX: Never smoker. No alcohol use or drug use. No recent travel. No known contact with a sick individual. ABUSE ASSESSMENT: Abuse assessment: The patient was asked "Do you feel safe in your home?" and "Has anyone hurt you or threatened to hurt you?". No report of abuse. SELF HARM ASSESSMENT: A self harm assessment was performed. The patient answered "no" to the question "Do you have thoughts of harming or killing yourself?" and "Have you recently had thoughts about harming or killing others?". NUTRITIONAL RISK ASSESSMENT: The nutritional risk assessment revealed no deficiencies. FUNCTIONAL ASSESSMENT: Functional assessment: no impairments noted. LEARNING NEEDS ASSESSMENT: The learning needs assessment revealed no barriers. --09:46 Natalie Newton R.N. PROBLEMS: Vomiting. Asthma. Lump in lt breast, and lt flank pain. Bronchospasm. Bronchitis. Fall. Sprain. Diabetes Mellitus. Hypertension. --09:44 Natalie Newton R.N. ADDITIONAL SURGERIES: Leg surgery. Tissue removed from stomach. Wrist surgery. --09:44 Natalie Newton R.N. Interventions ID band on patient. Ambulatory. --09:46 Natalie Newton R.N. PHYSICAL ASSESSMENT Ambulatory to room. GENERAL / NEURO / PSYCH: Alert. Oriented X 4. Appears in no acute distress. HEENT: Mucous membranes are pink. RESPIRATORY: Respirations not labored. CVS: Capillary refill less than 2 seconds. GI / : Abdomen soft. Abdominal tenderness in the lower abdomen. SKIN: Skin is warm and dry. --09:47 Natalie Newton R.N. SKIN: Skin is diaphoretic. ( correction to prior:). --09:57 Natalie Newton R.N. NURSING PROGRESS NOTES Patient gowned. Head of bed elevated. Patient ID band checked for patient name, birthdate and medical record number: patient confirmed. Instructions provided to collect clean catch urine and patient verbalized understanding. Clean catch urine collected with return of yellow-colored clear urine; sample sent to lab for urinalysis. Specimen labeled in the presence of the patient. Two patient identifiers checked. Call light placed in reach. Side rails up x 2. Bed placed in lowest position. Brakes of bed on. Patient ready for evaluation- chart flagged. --09:47 Natalie Newton R.N. campus monitor, pulse oximeter and NIBP monitor placed on patient; awake overnight monitor- Lead II; monitor alarms on. --09:47 Natalie Newton R.N. 09:50 09/21/2016 Site #1 started via IV in the right wrist with an 20g angiocath, with aseptic technique and good blood return; one attempt. Blood drawn: rainbow set and cultures x1. Labeled in the presence of the patient and sent to the lab. Saline lock flushed with 10 mL saline (accessed by Anali Saul RN). --09:59 Natalie Newton R.N. ( Lactate drawn during IV start.). --09:59 Natalie Newton R.N. EKG time: (954). EKG was ordered, performed by a nurse and shown to the ED physician. --09:59 Natalie Newton R.N. 10:00 09/21/16. HR: 122 (regular and tachycardic). --10:00 Natalie Newton R.N. ( portable chest xray done at the bedside.). --10:03 Natalie Newton R.N. ( POC BS: >500. Provider aware.). --10:09 Natalie Newton R.N. ( POC glucose >500 mg/dL). --10:10 Herminia Palencia ( Moved to room 2). --10:24 Colton Osborne R.N. 10:24 09/21/16. BP: 134/67. HR: 128. RR: 25. O2 saturation: 96%. --10:25 Colton Osborne R.N. Cardiac rhythm: sinus tachycardia. --10:25 Colton Osborne R.N. 10:21 09/21/2016 Started bag #1 1000 mL IV Fluids IV NS (Saline); at 999 mL/hr over 1 hour(s) via site #1. Allergies verified and confirmed 5 rights. IV patency established. IV site checked: no pain, redness, or swelling. IV flushed thoroughly pre- and post-medication administration. Completed per protocol. --10:26 Colton Osborne R.N. ( POC BS > 500. Provider aware. Pt. remains on insulin drip.). --10:42 Colton Osborne R.N. 10:42 09/21/2016 Started 2 unit of Insulin Reg Drip IV in bag #1 100 mL; at 2 unit/hr over 50 hour(s) via site #1 via IV pump. Allergies verified and confirmed 5 rights. IV patency established. IV site checked: no pain, redness, or swelling. IV flushed thoroughly pre- and post-medication administration (IV bolus 10 units given @ 10:44. Orders verified by FABIO Dean.). --10:45 Natalie Newton R.N. 10:47 09/21/16. BP: 126/81. HR: 125 (regular and tachycardic). RR: 25. O2 saturation: 100% on nasal cannula at 4 liters/minute. End tidal CO2: 21 mmHg. --10:49 Natalie Newton R.N. ( pt c/o nausea.). --10:49 Natalie Newton R.N. 10:35. --10:54 Natalie Newton R.N. 10:35 09/21/16. HR: 128. O2 saturation: 70%. Additional comments: Pt. placed on 4L NC. Provider notified. . --10:54 Natalie Newton R.N. 10:55 09/21/2016 Site #2 started via IV in the left antecubital space with an 20g angiocath, with aseptic technique and good blood return; one attempt. Blood drawn: rainbow set and cultures x2. Labeled in the presence of the patient and sent to the lab. Saline lock flushed with 10 mL saline (accessed by FABIO Dean). --10:55 Natalie Newton R.N. 10:55 09/21/16. BP: 126/81. HR: 124. RR: 36. O2 saturation: 100% on nasal cannula at 4 liters/minute. --10:55 Natalie Newton R.N. 11:00 09/21/2016 Zofran (Ondansetron HCl) IVP 8 mg given over 2 minute(s) via site #2. Allergies verified and confirmed 5 rights. IV patency established. IV site checked: no pain, redness, or swelling. IV flushed thoroughly pre- and post-medication administration. --11:00 Natalie Newton R.N. Critical value relayed to ED by medical lab assistant. Critical value received by Natalie Penaloza RN. Lactate level: 8.1. Critical value read back. Verified lab result and patient ID. Patient ID band checked for patient name, birthdate and medical record number: patient confirmed. ED physician notifed of critical value. --11:10 Natalie Newton R.N. 11:15 09/21/16. Critical value relayed to ED by Lab. Critical value received by FABIO Briones. Glucose: 1085. Critical value read back. Verified lab result and patient ID. ED physician notifed of critical value. Orders were received. --11:15 Anali Perea R.N. 11:49 09/21/2016 IV Fluids IV NS Bag Change: bag #1 infused. Total amount infused: 1000. STARTED bag #2 (1000 mL) at 1000 mL/hr via IV pump. Confirmed 5 rights. IV patency established. IV site checked: no pain, redness, or swelling. IV flushed thoroughly. --11:49 Joana Mims R.N. 11:41 09/21/16. BP: 147/68. HR: 120. RR: 26. O2 saturation: 98%. --11:59 Joana Mims R.N. Patient transported to [place] by stretcher. (11:58). --12:01 Joana Mims R.N. 11:20 09/21/2016 Started 4 unit of Insulin Reg Drip IV in bag #1 100 mL; at 4 unit/hr over 4 hour(s) via site #1 via IV pump. Allergies verified and confirmed 5 rights. IV patency established. IV site checked: no pain, redness, or swelling. IV flushed thoroughly pre- and post-medication administration. --12:32 Anali Perea R.N. 12:22 09/21/2016 Started 2 gm of Ceftriaxone IVPB in bag #1 50 mL; at 100 mL/hr over 30 minute(s) via site #2 via IV pump. Allergies verified and confirmed 5 rights. IV patency established. IV site checked: no pain, redness, or swelling. IV flushed thoroughly pre- and post-medication administration. --12:23 Joana Mims R.N. 12:41 09/21/16. BP: 145/66. HR: 108 (regular and tachycardic). RR: 21. O2 saturation: 98% on nasal cannula at 4 liters/minute. --12:43 Natalie Newton R.N. ( POC BS > 500.). --12:43 Natalie Newton R.N. 11:10 POC BS >500. --12:44 Natalie Newton R.N. 11:40 POC BS > 500. --12:44 Natalie Newton R.N. 12:47 09/21/2016 Ceftriaxone IVPB Discontinued: infused. Total amount infused: 50 mL. IV patency established. IV site checked: no pain, redness, or swelling. IV flushed thoroughly. --12:47 Natalie Newton R.N. 12:56 09/21/2016 Started bag #3 1000 mL IV Fluids IV NS (Saline); at 100 mL/hr over 5 hour(s) via site #1 via IV pump. Allergies verified and confirmed 5 rights. IV patency established. IV site checked: no pain, redness, or swelling. IV flushed thoroughly pre- and post-medication administration (v.o. for rate change to 100ml/hr). --12:56 Natalie Newton R.N. 12:56 09/21/2016 IV Fluids IV NS Discontinued: bag #2 infused. Total amount infused: 1000 mL. IV patency established. IV site checked: no pain, redness, or swelling. IV flushed thoroughly. --12:57 Natalie Newton R.N. <<STRICKEN ENTRY-- 12:57 09/21/2016 IV Fluids IV NS Discontinued: bag #2 infused. Total amount infused: 1000 mL. IV patency established. IV site checked: no pain, redness, or swelling. IV flushed thoroughly. --12:57 Natalie Newton R.N. --END STRIKE>> Other. --12:57 Natalie Newton R.N. Critical value relayed to ED by Shana: medical lab assistant. Critical value received by Natalie Newton. Calcium: >5. Critical value read back. Verified lab result and patient ID. Patient ID band checked for patient name, birthdate and medical record number: patient confirmed. ED physician notifed of critical value. --13:03 Natalie Newton R.N. Critical value relayed to ED by medical lab assistant. Critical value received by Natalie Tijerina CSF: wbc:29, rbc:36. Critical value read back. Verified lab result. Patient ID band checked for patient name, birthdate and medical record number: patient confirmed. ED physician notifed of critical value. --13:15 Natalie Newton R.N. ( precaution cart and sign placed in front of room.). --13:20 Natalie Newton R.N. ( 13:03 lab notified for re-draw of calcium levels.). --13:22 Natalie Newton R.N. Reassessment after fluids administered and medication administered. She has had no adverse reaction. Overall patient status- she states feels better. Patient and family informed about reason for wait and about plan of care. --13:54 Natalie Newton R.N. 13:52 17. BP: 131/65. HR: 106. RR: 25. O2 saturation: 98%. Temp: 98.0 F. End tidal CO2: 27mmHg. Pain level now 0/10. --13:54 Natalie Newton R.N. ( POC BS: >500mg/dL.). --13:57 Natalie Newton R.N. Critical value relayed to ED by medical lab assistant. Critical value received by Natalie Tijerina calcium: 8.8. Glucose: 681. Critical value read back. Verified lab result and patient ID. Patient ID band checked for patient name, birthdate and medical record number. --14:11 Natalie Newton R.N. 14:14 09/21/2016 Started 2 unit of Insulin Reg Drip IV in bag #1 100 mL; at 2 unit/hr over 4 hour(s) via site #1 via IV pump. Allergies verified and confirmed 5 rights. IV patency established. IV site checked: no pain, redness, or swelling. IV flushed thoroughly pre- and post-medication administration. --14:16 Natalie Newton R.N. 14:35. ( pt vomiting. orders received.). --14:39 Natalie Newton R.N. 14:40 09/21/2016 Reglan (Metoclopramide HCl) IVP 10 mg given over 2 minute(s) via site #2. Allergies verified and confirmed 5 rights. IV patency established. IV site checked: no pain, redness, or swelling. IV flushed thoroughly pre- and post-medication administration. --14:40 Natalie Newton R.N. 14:42 09/21/2016 IV Fluids IV NS Continued: upon transfer at the rate of 100 mL/hr. 900 mL remaining bag #3. IV patency established. IV site checked: no pain, redness, or swelling. IV flushed thoroughly. --14:42 Natalie Newton R.N. 14:43 09/21/2016 Insulin Reg Drip IV Continued: upon transfer at the rate of 2 unit/hr. 75 mL remaining. IV patency established. IV site checked: no pain, redness, or swelling. IV flushed thoroughly. --14:43 Natalie Newton R.N. Intake & Output Urine: 180, with return of yellow-colored clear urine. --12:40 Natalie Newton R.N. DISPOSITION / DISCHARGE 14:40 09/21/16. BP: 141/69. HR: 112. RR: 21. O2 saturation: 97% on nasal cannula at 4 liters/minute. Temp: 98.0 F. Pain level now: 0/10. --14:41 Natalie Newton R.N. ( POC BS: 438mg/dL). --14:59 Natalie Newton R.N. 14:45. Transferred to [facility]. Summary of care provided to transport team (report given to FABIO Moreno). --15:07 Natalie Newton R.N. 14:45. Patient's personal items; items were placed in belongings bag, given to the patient and transported with the patient. --15:07 Natalie Newton R.N. Departure time: 1445. --15:08 Natalie Newton R.N. Medication list reviewed and validated. --15:08 Natalie Newton R.N. ( attempt to call report to RN at [facility]. RN to call back.). --15:15 Natalie Newton R.N. ( attempt to call report to RN at [facility]. RN unavailable at this time.). --15:57 Natalie Newton R.N. Locked/Released at 09/21/2016 15:57 by Natalie Newton R.N.
--- NOTE | 2016-09-21 13:39 | ED CLINICAL REPORT ---
Clinical Report - Physicians/Mid Levels [facility] [address] [place] [address] 09/21/2016 9:20 [id number] Time Seen: 09:47. Arrived- By private vehicle. Historian- patient. History limited by vague historian. HISTORY OF PRESENT ILLNESS Chief Complaint: VOMITING. This started yesterday and is still present. It was abrupt in onset and has been intermittent. No recent travel. She has had nausea. She has had vomiting. The vomiting has occurred numerous times and has been dark in color. No frankly bloody emesis. No diarrhea, black stools, bloody stools, abdominal pain or constipation. No flank pain, history of possible bad food exposure or known contact with a sick individual. Has not recently been camping or on antibiotics. She has had a change in diabetic routine: decreased food intake and decreased activity. Last bowel movement: yesterday. The illness is described as severe. Similar symptoms previously: None. REVIEW OF SYSTEMS The patient has had chills and fatigue. No fever, sweats, calf pain, chest pain or cough. No difficulty breathing, pedal edema, palpitations, black stools or bloody stools. No constipation, diarrhea or urinary problems. The patient has had altered mental status reported by family: confused, labile and disoriented to time. Slow to respond and responds to simple questions and commands. All systems otherwise negative, except as recorded above. PAST HISTORY PCP - Koby. Problems: Vomiting. Asthma. Lump in lt breast, and lt flank pain. Bronchospasm. Bronchitis. Fall. Sprain. Diabetes Mellitus. Hypertension. Additional Surgeries: Leg surgery. Tissue removed from stomach. Wrist surgery. Medications: Amitriptyline HCl Oral 10 mg, at bedtime. Fosamax Oral 70 mg, weekly. Gabapentin Oral 600mg tid . Hydrochlorothiazide Oral (Tablet 25 mg) 1 tablet, daily. Insulin Regular Human Injection 20units morn, 30units noon, 30units leslye . Lantus Subcutaneous 40units , 2x a day. Levothyroxine Sodium Oral 88 mcg, daily. Lisinopril Oral 40 mg, 2x a day. Metoprolol Succinate ER Oral (Tablet Extended Release 24 Hour 25 mg) 1 tablet, 50mg , day. Ranitidine HCl Oral 150 mg, daily. Zetia Oral (Tablet 10 mg) 1 tablet, day. Allergies: PCN. Sulfa Drugs. SOCIAL HISTORY Former smoker. No alcohol use. She lives with a family member. Has good social support. FAMILY HISTORY Denies family medical history. ADDITIONAL NOTES The nursing notes have been reviewed. PHYSICAL EXAM Vital Signs: 09/21/2016 09:43 BP: 119/64. HR: 137. RR: 18. O2 saturation: 97%. Have been reviewed. Appearance: The patient appears uncomfortable, is severely dehydrated and is confused. She appears frail, elderly and unkempt. Eyes: Pupils equal, round and reactive to light. ENT: Dry mucous membranes present. Pharynx normal. Neck: Normal inspection. Neck supple. No JVD. CVS: Normal heart rate and rhythm. Heart sounds normal. Respiratory: No respiratory distress. Breath sounds normal. Abdomen: Moderate tenderness in the upper abdomen. Bowel sounds normal. No mass. Back: Normal inspection. Skin: Skin warm and dry. Extremities: Extremities exhibit normal ROM. No calf tenderness. No lower extremity edema. Neuro: Moderately altered mental status: confused and disoriented to place and time. Patient slow to respond. Responds to simple questions and commands. Eyes open spontaneously. Best verbal response: disoriented. LABS, X-RAYS, AND EKG EKG: Rate: 125. Tachycardia. Non-specific ST segment / T wave abnormalities. Changes present when compared to prior EKG. (05 July 2016). The study has been independently viewed by me. Chest X-ray: (IMPRESSION: 1. Negative chest.). The X-rays were interpreted by the radiologist and contemporaneously by me. CT Head: (IMPRESSION: 1. 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 2. Moderate old small vessel disease and atrophic changes. 3. There is a 2 cm osseous excrescence of the inner table of the right frontal bone consistent with meningioma or exostosis. 4. No evidence of acute process.). The study was interpreted contemporaneously by me and discussed with the radiologist. Laboratory Tests: UA-Culture if indicated: (HEMA: 09/21/2016 09:45) ( MsgRcvd 09/21/2016 10:24) Final results Test Result Flag Units (Reference) URINE COLOR YELLOW URINE APPEARANCE CLEAR URINE GLUCOSE 3+ (NEGATIVE) URINE BILIRUBIN NEGATIVE (NEGATIVE) URINE KETONE TRACE (NEGATIVE) URINE SPECIFIC GRAVITY 1.015 (1.010-1.030) URINE PH 5.5 (5.0-8.0) URINE PROTEIN 2+ (NEGATIVE) URINE UROBILINOGEN 0.2 EU/dL (0.2-1.0) URINE NITRITE NEGATIVE (NEGATIVE) URINE BLOOD 2+ (NEGATIVE) URINE LEUK ESTERASE NEGATIVE (NEGATIVE) URINE RBC RARE rbc/hpf (0-1) URINE WBC RARE wbc/hpf (0-1) URINE EPITHELIAL CELLS 1-3 EPI/hpf (0-5) URINE BACTERIA MODERATE (2+ TO 3+) (NONE SEEN) URINE COMMENT CULTURE INDICATED CLUE CELLS SEEN. 0-1 GRANULAR CASTS.URINE CULTURES ARE SET-UP BASED ON THE FOLLOWING CRITERIA:POSITIVE NITRITEPOSITIVE LEUKOCYTE ESTERASEGREATER THAN 10 WHITE BLOOD CELLSMODERATE (2+) OR GREATER BACTERIA CBC w Diff: (HEMA: 09/21/2016 09:50) ( [facility] 09/21/2016 10:50) Final results Test Result Flag Units (Reference) WHITE BLOOD COUNT 20.8 H K/uL (4.5-11.5) RED BLOOD COUNT 4.73 M/uL (4.00-5.20) HEMOGLOBIN 13.7 gm/dL (12.0-16.0) HEMATOCRIT 41.5 % (36.0-46.0) MEAN CELL VOLUME 88 fL (80-100) MEAN CORPUSCULAR HGB 29 pg (26-34) MEAN CORPUSCULAR HGB CONC 33 g/dL (31-37) RED CELL DISTRIBUTION WIDTH 12.6 % (11.6-14.8) PLATELET COUNT 355 K/uL (150-400) POLY % 88 H % (50-75) BAND % 0 % (0-8) LYMPH 12 L % (25-40) MONO 0 L % (3-14) EOSINOPHIL % 0 % (0-4) BASOPHIL % 0 % (0-2) METAMYELOCYTE % 0 % (0-1) MYELOCYTE 0 % (0-1) OTHER CELL TYPE 0 Glucose, Random: (HEMA: 09/21/2016 13:20) ( [facility] 09/21/2016 14:10) Final results Test Result Flag Units (Reference) GLUCOSE 681 *H mg/dL (70-110) CRITICAL RESULTS CALLEDCalled to BONNIE PAIZ RN 09/21/16 1409Were 2 patient identifiers used? YWas the result read back? Y CALCIUM 8.8 mg/dL (8.5-10.1) Magnesium: (HEMA: 09/21/2016 10:55) ( [facility] 09/21/2016 12:26) Final results Test Result Flag Units (Reference) MAGNESIUM 1.9 mg/dL (1.8-2.4) Lactate, Serum: (HEMA: 09/21/2016 09:58) ( [facility] 09/21/2016 11:09) Final results Test Result Flag Units (Reference) LACTIC ACID 8.1 H mmol/L (0.4-2.0) CRITICAL RESULTS CALLEDCalled to BONNIE BRODERICK RN 09/21/16 1108Were 2 patient identifiers used? YWas the result read back? Y Acetone, Serum: (HEMA: 09/21/2016 09:50) ( [facility] 09/21/2016 10:31) Final results Test Result Flag Units (Reference) ACETONE, SERUM QUALITATIVE POSITIVE (NEGATIVE) BNP: (HEMA: 09/21/2016 09:50) ( [facility] 09/21/2016 10:37) Final results Test Result Flag Units (Reference) B-TYPE NATRIURETIC PEPTIDE 910 H pg/ml (5-100) CMP: (HEMA: 09/21/2016 09:50) ( [facility] 09/21/2016 13:03) Final results Test Result Flag Units (Reference) LIPASE 82 U/L (73-393) AMYLASE 17 L U/L (25-115) CPK 70 U/L (24-260) TROPONIN I 0.09 ng/mL (0.00-1.5) TROPONIN REFERENCE RANGE:<0.1 NEGATIVE0.1-1.5 INDETERMINANT>1.5 POSITIVE GLUCOSE 1085 *H mg/dL (70-110) Results calledPerson contacted: BONNIE BAUTISTA RNWas the result read back? YDate: 09/21/16 Time: 1111By: LAB.KB BUN 66 H mg/dL (7-18) CREATININE 3.1 H mg/dL (0.6-1.3) Estimated GFR 15.53 mL/min Estimated GFR- 18.82 mL/min Note: Persistent reduction over 3 months in eGFR<60 mL/min/1.73 m2 defines CKD. Patients with eGFR values>=60 mL/min/1.73 m2 may also have CKD if evidence ofpersistent proteinuria. Additional information may be foundat www.kidney.org. SODIUM 127 L mmol/L (136-145) POTASSIUM 4.2 mmol/L (3.5-5.1) CHLORIDE 90 L mmol/L (98-107) CARBON DIOXIDE 21 mmol/L (21-32) CALCIUM < 5.0 *L mg/dL (8.5-10.1) CRITICAL RESULTS CALLEDCalled to BONNIE PAIZ RN 09/21/16 1301Were 2 patient identifiers used? YWas the result read back? Y TOTAL PROTEIN 7.9 g/dL (6.4-8.2) ALBUMIN 3.0 L g/dL (3.3-5.0) BILIRUBIN, TOTAL 0.6 mg/dL (0.0-1.0) ALKALINE PHOSPHATASE 89 U/L (46-116) AST (SGOT) 10 L U/L (15-37) ALT (SGPT) 15 U/L (12-78) ABG: (HEMA: 09/21/2016 13:33) ( MsgRcvd 09/21/2016 13:50) Final results Test Result Flag Units (Reference) FIO2 0.35 L % (20-101) ABG MODE OF DELIVERY NC MODIFIED LAYLA TEST POSITIVE? YES LITERS PER MIN. 4 L/MIN (0-20) ABG PATIENT RESP RATE 20 /MIN ARTERIAL BLOOD GAS SITE RR ARTERIAL BLOOD GAS pH 7.40 (7.35-7.45) ABG PCO2 44.0 mmHg (35-45) ABG PO2 93.1 H mmHg (60.0-80.0) ABG BASE EXCESS 2.3 H mmol/L (-6.0--6.0) ABG HCO3 27.3 H mmol/L (20.0-26.0) ABG TCO2 28.7 mmol/L (24.0-30.0) ABG YqBrE6s 107.6 H mmHg (7.0-14.0) *NOTE: Normal rangeis based on aFIO2 of 21% ABG SAT O2 97.6 % (95.1-100.0) ABG TOTAL HEMOGLOBIN 12.4 g/dL (12.0-16.0) ABG O2 HEMOGLOBIN 95.8 % (95.0-100.0) ABG CARBOXYHEMOGLOBIN 1.3 % (0.5-1.5) ABG METHEMOGLOBIN 0.5 % (0.4-1.5) ABG RHEMOGLOBIN 2.4 % ABG: (HEMA: 09/21/2016 10:12) ( MsgRcvd 09/21/2016 10:41) Final results Test Result Flag Units (Reference) FIO2 0.21 L % (20-101) ABG MODE OF DELIVERY RA MODIFIED LAYLA TEST POSITIVE? YES ABG PATIENT RESP RATE 24 /MIN ARTERIAL BLOOD GAS SITE LR ARTERIAL BLOOD GAS pH 7.53 H (7.35-7.45) ABG PCO2 25.7 L mmHg (35-45) ABG PO2 75.8 mmHg (60.0-80.0) ABG BASE EXCESS -0.4 H mmol/L (-6.0--6.0) ABG HCO3 21.7 mmol/L (20.0-26.0) ABG TCO2 22.5 L mmol/L (24.0-30.0) ABG MuYuT1h 44.8 H mmHg (7.0-14.0) *NOTE: Normal rangeis based on aFIO2 of 21% ABG SAT O2 97.0 % (95.1-100.0) ABG TOTAL HEMOGLOBIN 13.5 g/dL (12.0-16.0) ABG O2 HEMOGLOBIN 95.3 % (95.0-100.0) ABG CARBOXYHEMOGLOBIN 1.5 % (0.5-1.5) ABG METHEMOGLOBIN 0.3 L % (0.4-1.5) ABG RHEMOGLOBIN 2.9 % CSF, Cell Count: (HEMA: 09/21/2016 11:35) ( [facility] 09/21/2016 13:10) Final results Test Result Flag Units (Reference) CSF GLUCOSE 415 *H mg/dL (40-75) CRITICAL RESULTS CALLEDCalled to BONNIE WRAY RN 09/21/16 1215Were 2 patient identifiers used? YWas the result read back? Y CSF PROTEIN 55.0 H mg/dL (15-45) CSF TOTAL VOLUME 4.0 CC TUBE # 4 COLOR COLORLESS APPEARANCE CLEAR CSF WBC 29 H WBC/mm3 (0-5) Results calledPerson contacted: BONNIE PAIZ RNWas the result read back? YDate: 09/21/16 Time: 1307By: LAB.KB CSF RBC 36 H RBC/mm3 (0-5) CSF SEGMENTED NEUTROPHILS 0 % (0-7) CSF MONONUCLEAR CELLS 100 H % (16-98) CSF, Culture: (HEMA: 09/21/2016 11:35) ( [facility] 09/21/2016 13:54) IP Test Result Flag Units (Reference) GRAM STAIN, CSF DATE: 09/21/16 EPITHELIAL CELLS: NONE NO ORGANISMS SEEN: NO ORGANISMS SEEN WHITE BLOOD CELLS: RARE -- YEAST: NO . Note - Tests: (Name: Nikolay Barbosa : 1940 MR#: [id number] Ordering Provider: JESUS NEWMAN Exam(s): CT THORAX ABD PELVIS W/O CONT Date of Exam: 09/21/2016 __ PROCEDURE: CT THORAX ABD PELVIS W/O CONT CLINICAL INDICATION: Sepsis. Elevated white blood count (20,800). Diabetes. TECHNIQUE: Noncontrast axial images with sagittal and coronal reformations. Intravenous contrast was not utilized due to compromised renal status (GFR 15). COMPARISON: Comparison is made to chest x-ray earlier today (09/21/2016) and abdominal ultrasound (07/06/2016). FINDINGS: THORAX: There is moderate to marked mucosal thickening of the mid and distal esophagus with fluid level of the proximal esophagus. There is mild to moderate chronic interstitial and parenchymal scarring in the lungs. Heart is of normal size. Marked of coronary vascular calcifications. Moderate calcified atheromatous changes of the aorta. There is a 3 cm x 2 cm lobulated ovoid left breast mass. Mild to moderate degenerative changes of the thoracic spine. ABDOMEN: Cholecystectomy (surgical clips). Marked calcified atheromatous changes aorta, but no evidence of aneurysm. Liver, spleen, pancreas, are normal. Kidneys are of normal size (9.4 cm, left 10.4 cm) with 0.5 mm of punctate calcification in the lower pole left kidney. There is a 1.5 cm low density left adrenal nodule (11 HU). Bowel pattern is normal. Appendix is not clearly identified, no evidence of inflammatory process. Moderate degenerative change of the lumbar spine. PELVIS: Uterus and right adnexal region appears normal. There is a 3.1 cm left ovarian cyst. Marked calcified atheromatous changes of the iliac and femoral vessels. IMPRESSION: 1. Moderate mucosal thickening of the distal esophagus with fluid distention of the proximal esophagus. Consider reflux esophagitis or esophageal mass/neoplasm. 2. Moderate chronic parenchymal scarring in the lungs. 3. Marked coronary vascular calcifications. 4. There is a 3 cm left breast mass. Consider benign or malignant neoplasm. Further work up and/or biopsy is recommended (as clinically indicated). 5. Status post cholecystectomy. 6. There is 1.5 cm low density left adrenal nodule consistent with benign adenoma. 7. There is a 0.5 mm nonobstructing calculus in the lower pole left kidney. 8. Marked calcified atheromatous changes aorta and iliofemoral vessels. 9. There is a 3.1 cm left ovarian cyst. Follow-up ultrasound after the patient's acute illness is recommended to further evaluate (3-4 weeks).). PROGRESS AND PROCEDURES Lumbar Puncture: Time-out completed immediately before the procedure. Lumbar puncture performed by me. Risks, benefits and alternatives were discussed. Consent was obtained from relative. Sterile technique was used. The area was cleansed with Betadine. Patient was positioned right side down. A 22g needle was used. No complications observed. Opening pressure- 10 cm H2O. Color- clear. Spinal tap was not bloody. Discussed case with hospitalist, (Dr. Esperanza Shultz at [facility]). Reviewed test results and need for additional work-up. Agreed upon treatment plan. Health care provider will see patient in hospital. Patient/family counseled. Old medical records reviewed. Disposition: Transferred to [facility]. CLINICAL IMPRESSION Sepsis. Renal insufficiency. Abnormal tests: (CSF). Possible meningitis. Possible encephalitis. diabetic hyperglycemic and hyperosmolar ketotic state without acidosis. (Electronically signed by Jesus Newman MD 09/21/2016 15:29)
--- NOTE | 2016-09-21 13:39 | ED CLINICAL REPORT ---
Clinical Report - Physicians/Mid Levels [facility] [address] [place] [address] 09/21/2016 9:20 [id number] Time Seen: 09:47. Arrived- By private vehicle. Historian- patient. History limited by vague historian. HISTORY OF PRESENT ILLNESS Chief Complaint: VOMITING. This started yesterday and is still present. It was abrupt in onset and has been intermittent. No recent travel. She has had nausea. She has had vomiting. The vomiting has occurred numerous times and has been dark in color. No frankly bloody emesis. No diarrhea, black stools, bloody stools, abdominal pain or constipation. No flank pain, history of possible bad food exposure or known contact with a sick individual. Has not recently been camping or on antibiotics. She has had a change in diabetic routine: decreased food intake and decreased activity. Last bowel movement: yesterday. The illness is described as severe. Similar symptoms previously: None. REVIEW OF SYSTEMS The patient has had chills and fatigue. No fever, sweats, calf pain, chest pain or cough. No difficulty breathing, pedal edema, palpitations, black stools or bloody stools. No constipation, diarrhea or urinary problems. The patient has had altered mental status reported by family: confused, labile and disoriented to time. Slow to respond and responds to simple questions and commands. All systems otherwise negative, except as recorded above. PAST HISTORY PCP - Koby. Problems: Vomiting. Asthma. Lump in lt breast, and lt flank pain. Bronchospasm. Bronchitis. Fall. Sprain. Diabetes Mellitus. Hypertension. Additional Surgeries: Leg surgery. Tissue removed from stomach. Wrist surgery. Medications: Amitriptyline HCl Oral 10 mg, at bedtime. Fosamax Oral 70 mg, weekly. Gabapentin Oral 600mg tid . Hydrochlorothiazide Oral (Tablet 25 mg) 1 tablet, daily. Insulin Regular Human Injection 20units morn, 30units noon, 30units leslye . Lantus Subcutaneous 40units , 2x a day. Levothyroxine Sodium Oral 88 mcg, daily. Lisinopril Oral 40 mg, 2x a day. Metoprolol Succinate ER Oral (Tablet Extended Release 24 Hour 25 mg) 1 tablet, 50mg , day. Ranitidine HCl Oral 150 mg, daily. Zetia Oral (Tablet 10 mg) 1 tablet, day. Allergies: PCN. Sulfa Drugs. SOCIAL HISTORY Former smoker. No alcohol use. She lives with a family member. Has good social support. FAMILY HISTORY Denies family medical history. ADDITIONAL NOTES The nursing notes have been reviewed. PHYSICAL EXAM Vital Signs: 09/21/2016 09:43 BP: 119/64. HR: 137. RR: 18. O2 saturation: 97%. Have been reviewed. Appearance: The patient appears uncomfortable, is severely dehydrated and is confused. She appears frail, elderly and unkempt. Eyes: Pupils equal, round and reactive to light. ENT: Dry mucous membranes present. Pharynx normal. Neck: Normal inspection. Neck supple. No JVD. CVS: Normal heart rate and rhythm. Heart sounds normal. Respiratory: No respiratory distress. Breath sounds normal. Abdomen: Moderate tenderness in the upper abdomen. Bowel sounds normal. No mass. Back: Normal inspection. Skin: Skin warm and dry. Extremities: Extremities exhibit normal ROM. No calf tenderness. No lower extremity edema. Neuro: Moderately altered mental status: confused and disoriented to place and time. Patient slow to respond. Responds to simple questions and commands. Eyes open spontaneously. Best verbal response: disoriented. LABS, X-RAYS, AND EKG EKG: Rate: 125. Tachycardia. Non-specific ST segment / T wave abnormalities. Changes present when compared to prior EKG. (05 July 2016). The study has been independently viewed by me. Chest X-ray: (IMPRESSION: 1. Negative chest.). The X-rays were interpreted by the radiologist and contemporaneously by me. CT Head: (IMPRESSION: 1. 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 2. Moderate old small vessel disease and atrophic changes. 3. There is a 2 cm osseous excrescence of the inner table of the right frontal bone consistent with meningioma or exostosis. 4. No evidence of acute process.). The study was interpreted contemporaneously by me and discussed with the radiologist. Laboratory Tests: UA-Culture if indicated: (HEMA: 09/21/2016 09:45) ( MsgRcvd 09/21/2016 10:24) Final results Test Result Flag Units (Reference) URINE COLOR YELLOW URINE APPEARANCE CLEAR URINE GLUCOSE 3+ (NEGATIVE) URINE BILIRUBIN NEGATIVE (NEGATIVE) URINE KETONE TRACE (NEGATIVE) URINE SPECIFIC GRAVITY 1.015 (1.010-1.030) URINE PH 5.5 (5.0-8.0) URINE PROTEIN 2+ (NEGATIVE) URINE UROBILINOGEN 0.2 EU/dL (0.2-1.0) URINE NITRITE NEGATIVE (NEGATIVE) URINE BLOOD 2+ (NEGATIVE) URINE LEUK ESTERASE NEGATIVE (NEGATIVE) URINE RBC RARE rbc/hpf (0-1) URINE WBC RARE wbc/hpf (0-1) URINE EPITHELIAL CELLS 1-3 EPI/hpf (0-5) URINE BACTERIA MODERATE (2+ TO 3+) (NONE SEEN) URINE COMMENT CULTURE INDICATED CLUE CELLS SEEN. 0-1 GRANULAR CASTS.URINE CULTURES ARE SET-UP BASED ON THE FOLLOWING CRITERIA:POSITIVE NITRITEPOSITIVE LEUKOCYTE ESTERASEGREATER THAN 10 WHITE BLOOD CELLSMODERATE (2+) OR GREATER BACTERIA CBC w Diff: (HEMA: 09/21/2016 09:50) ( [facility] 09/21/2016 10:50) Final results Test Result Flag Units (Reference) WHITE BLOOD COUNT 20.8 H K/uL (4.5-11.5) RED BLOOD COUNT 4.73 M/uL (4.00-5.20) HEMOGLOBIN 13.7 gm/dL (12.0-16.0) HEMATOCRIT 41.5 % (36.0-46.0) MEAN CELL VOLUME 88 fL (80-100) MEAN CORPUSCULAR HGB 29 pg (26-34) MEAN CORPUSCULAR HGB CONC 33 g/dL (31-37) RED CELL DISTRIBUTION WIDTH 12.6 % (11.6-14.8) PLATELET COUNT 355 K/uL (150-400) POLY % 88 H % (50-75) BAND % 0 % (0-8) LYMPH 12 L % (25-40) MONO 0 L % (3-14) EOSINOPHIL % 0 % (0-4) BASOPHIL % 0 % (0-2) METAMYELOCYTE % 0 % (0-1) MYELOCYTE 0 % (0-1) OTHER CELL TYPE 0 Glucose, Random: (HEMA: 09/21/2016 13:20) ( [facility] 09/21/2016 14:10) Final results Test Result Flag Units (Reference) GLUCOSE 681 *H mg/dL (70-110) CRITICAL RESULTS CALLEDCalled to BONNIE PAIZ RN 09/21/16 1409Were 2 patient identifiers used? YWas the result read back? Y CALCIUM 8.8 mg/dL (8.5-10.1) Magnesium: (HEMA: 09/21/2016 10:55) ( [facility] 09/21/2016 12:26) Final results Test Result Flag Units (Reference) MAGNESIUM 1.9 mg/dL (1.8-2.4) Lactate, Serum: (HEMA: 09/21/2016 09:58) ( [facility] 09/21/2016 11:09) Final results Test Result Flag Units (Reference) LACTIC ACID 8.1 H mmol/L (0.4-2.0) CRITICAL RESULTS CALLEDCalled to BONNIE BRODERICK RN 09/21/16 1108Were 2 patient identifiers used? YWas the result read back? Y Acetone, Serum: (HEMA: 09/21/2016 09:50) ( [facility] 09/21/2016 10:31) Final results Test Result Flag Units (Reference) ACETONE, SERUM QUALITATIVE POSITIVE (NEGATIVE) BNP: (HEMA: 09/21/2016 09:50) ( [facility] 09/21/2016 10:37) Final results Test Result Flag Units (Reference) B-TYPE NATRIURETIC PEPTIDE 910 H pg/ml (5-100) CMP: (HEMA: 09/21/2016 09:50) ( [facility] 09/21/2016 13:03) Final results Test Result Flag Units (Reference) LIPASE 82 U/L (73-393) AMYLASE 17 L U/L (25-115) CPK 70 U/L (24-260) TROPONIN I 0.09 ng/mL (0.00-1.5) TROPONIN REFERENCE RANGE:<0.1 NEGATIVE0.1-1.5 INDETERMINANT>1.5 POSITIVE GLUCOSE 1085 *H mg/dL (70-110) Results calledPerson contacted: BONNIE BAUTISTA RNWas the result read back? YDate: 09/21/16 Time: 1111By: LAB.KB BUN 66 H mg/dL (7-18) CREATININE 3.1 H mg/dL (0.6-1.3) Estimated GFR 15.53 mL/min Estimated GFR- 18.82 mL/min Note: Persistent reduction over 3 months in eGFR<60 mL/min/1.73 m2 defines CKD. Patients with eGFR values>=60 mL/min/1.73 m2 may also have CKD if evidence ofpersistent proteinuria. Additional information may be foundat www.kidney.org. SODIUM 127 L mmol/L (136-145) POTASSIUM 4.2 mmol/L (3.5-5.1) CHLORIDE 90 L mmol/L (98-107) CARBON DIOXIDE 21 mmol/L (21-32) CALCIUM < 5.0 *L mg/dL (8.5-10.1) CRITICAL RESULTS CALLEDCalled to BONNIE PAIZ RN 09/21/16 1301Were 2 patient identifiers used? YWas the result read back? Y TOTAL PROTEIN 7.9 g/dL (6.4-8.2) ALBUMIN 3.0 L g/dL (3.3-5.0) BILIRUBIN, TOTAL 0.6 mg/dL (0.0-1.0) ALKALINE PHOSPHATASE 89 U/L (46-116) AST (SGOT) 10 L U/L (15-37) ALT (SGPT) 15 U/L (12-78) ABG: (HEMA: 09/21/2016 13:33) ( MsgRcvd 09/21/2016 13:50) Final results Test Result Flag Units (Reference) FIO2 0.35 L % (20-101) ABG MODE OF DELIVERY NC MODIFIED LAYLA TEST POSITIVE? YES LITERS PER MIN. 4 L/MIN (0-20) ABG PATIENT RESP RATE 20 /MIN ARTERIAL BLOOD GAS SITE RR ARTERIAL BLOOD GAS pH 7.40 (7.35-7.45) ABG PCO2 44.0 mmHg (35-45) ABG PO2 93.1 H mmHg (60.0-80.0) ABG BASE EXCESS 2.3 H mmol/L (-6.0--6.0) ABG HCO3 27.3 H mmol/L (20.0-26.0) ABG TCO2 28.7 mmol/L (24.0-30.0) ABG WlTcQ7l 107.6 H mmHg (7.0-14.0) *NOTE: Normal rangeis based on aFIO2 of 21% ABG SAT O2 97.6 % (95.1-100.0) ABG TOTAL HEMOGLOBIN 12.4 g/dL (12.0-16.0) ABG O2 HEMOGLOBIN 95.8 % (95.0-100.0) ABG CARBOXYHEMOGLOBIN 1.3 % (0.5-1.5) ABG METHEMOGLOBIN 0.5 % (0.4-1.5) ABG RHEMOGLOBIN 2.4 % ABG: (HEMA: 09/21/2016 10:12) ( MsgRcvd 09/21/2016 10:41) Final results Test Result Flag Units (Reference) FIO2 0.21 L % (20-101) ABG MODE OF DELIVERY RA MODIFIED LAYLA TEST POSITIVE? YES ABG PATIENT RESP RATE 24 /MIN ARTERIAL BLOOD GAS SITE LR ARTERIAL BLOOD GAS pH 7.53 H (7.35-7.45) ABG PCO2 25.7 L mmHg (35-45) ABG PO2 75.8 mmHg (60.0-80.0) ABG BASE EXCESS -0.4 H mmol/L (-6.0--6.0) ABG HCO3 21.7 mmol/L (20.0-26.0) ABG TCO2 22.5 L mmol/L (24.0-30.0) ABG YgKiQ0s 44.8 H mmHg (7.0-14.0) *NOTE: Normal rangeis based on aFIO2 of 21% ABG SAT O2 97.0 % (95.1-100.0) ABG TOTAL HEMOGLOBIN 13.5 g/dL (12.0-16.0) ABG O2 HEMOGLOBIN 95.3 % (95.0-100.0) ABG CARBOXYHEMOGLOBIN 1.5 % (0.5-1.5) ABG METHEMOGLOBIN 0.3 L % (0.4-1.5) ABG RHEMOGLOBIN 2.9 % CSF, Cell Count: (HEMA: 09/21/2016 11:35) ( [facility] 13[facility]10) Final results Test Result Flag Units (Reference) CSF GLUCOSE 415 *H mg/dL (40-75) CRITICAL RESULTS CALLEDCalled to BONNIE WRAY RN 09/21/16 1215Were 2 patient identifiers used? YWas the result read back? Y CSF PROTEIN 55.0 H mg/dL (15-45) CSF TOTAL VOLUME 4.0 CC TUBE # 4 COLOR COLORLESS APPEARANCE CLEAR CSF WBC 29 H WBC/mm3 (0-5) Results calledPerson contacted: BONNIE PAIZ RNWas the result read back? YDate: 09/21/16 Time: 1307By: LAB.KB CSF RBC 36 H RBC/mm3 (0-5) CSF SEGMENTED NEUTROPHILS 0 % (0-7) CSF MONONUCLEAR CELLS 100 H % (16-98) CSF, Culture: (HEMA: 09/21/2016 11:35) ( [facility] 09/21/2016 13:54) IP Test Result Flag Units (Reference) GRAM STAIN, CSF DATE: 09/21/16 EPITHELIAL CELLS: NONE NO ORGANISMS SEEN: NO ORGANISMS SEEN WHITE BLOOD CELLS: RARE -- YEAST: NO . Note - Tests: (Name: Nikolay Barbosa : 1940 MR#: [id number] Ordering Provider: JESUS NEWMAN Exam(s): CT THORAX ABD PELVIS W/O CONT Date of Exam: 09/21/2016 __ PROCEDURE: CT THORAX ABD PELVIS W/O CONT CLINICAL INDICATION: Sepsis. Elevated white blood count (20,800). Diabetes. TECHNIQUE: Noncontrast axial images with sagittal and coronal reformations. Intravenous contrast was not utilized due to compromised renal status (GFR 15). COMPARISON: Comparison is made to chest x-ray earlier today (09/21/2016) and abdominal ultrasound (07/06/2016). FINDINGS: THORAX: There is moderate to marked mucosal thickening of the mid and distal esophagus with fluid level of the proximal esophagus. There is mild to moderate chronic interstitial and parenchymal scarring in the lungs. Heart is of normal size. Marked of coronary vascular calcifications. Moderate calcified atheromatous changes of the aorta. There is a 3 cm x 2 cm lobulated ovoid left breast mass. Mild to moderate degenerative changes of the thoracic spine. ABDOMEN: Cholecystectomy (surgical clips). Marked calcified atheromatous changes aorta, but no evidence of aneurysm. Liver, spleen, pancreas, are normal. Kidneys are of normal size (9.4 cm, left 10.4 cm) with 0.5 mm of punctate calcification in the lower pole left kidney. There is a 1.5 cm low density left adrenal nodule (11 HU). Bowel pattern is normal. Appendix is not clearly identified, no evidence of inflammatory process. Moderate degenerative change of the lumbar spine. PELVIS: Uterus and right adnexal region appears normal. There is a 3.1 cm left ovarian cyst. Marked calcified atheromatous changes of the iliac and femoral vessels. IMPRESSION: 1. Moderate mucosal thickening of the distal esophagus with fluid distention of the proximal esophagus. Consider reflux esophagitis or esophageal mass/neoplasm. 2. Moderate chronic parenchymal scarring in the lungs. 3. Marked coronary vascular calcifications. 4. There is a 3 cm left breast mass. Consider benign or malignant neoplasm. Further work up and/or biopsy is recommended (as clinically indicated). 5. Status post cholecystectomy. 6. There is 1.5 cm low density left adrenal nodule consistent with benign adenoma. 7. There is a 0.5 mm nonobstructing calculus in the lower pole left kidney. 8. Marked calcified atheromatous changes aorta and iliofemoral vessels. 9. There is a 3.1 cm left ovarian cyst. Follow-up ultrasound after the patient's acute illness is recommended to further evaluate (3-4 weeks).). PROGRESS AND PROCEDURES Lumbar Puncture: Time-out completed immediately before the procedure. Lumbar puncture performed by me. Risks, benefits and alternatives were discussed. Consent was obtained from relative. Sterile technique was used. The area was cleansed with Betadine. Patient was positioned right side down. A 22g needle was used. No complications observed. Opening pressure- 10 cm H2O. Color- clear. Spinal tap was not bloody. Discussed case with hospitalist, (Dr. Esperanza Shultz at [facility]). Reviewed test results and need for additional work-up. Agreed upon treatment plan. Health care provider will see patient in hospital. Patient/family counseled. Old medical records reviewed. Disposition: Transferred to [facility]. CLINICAL IMPRESSION Sepsis. Renal insufficiency. Abnormal tests: (CSF). Possible meningitis. Possible encephalitis. diabetic hyperglycemic and hyperosmolar ketotic state without acidosis. (Electronically signed by Jesus Newman MD 09/21/2016 15:29)
--- NOTE | 2016-09-21 13:39 | ED ORDER SUMMARY ---
..... Patient: NIKOLAY BARBOSA OrderSheet [facility] VisitID: [id number] [place] [address] 76y, F Registration Date/Time: 09/21/2016 ORDER SHEET Weight: 58.9 kg (estimated) Allergies: PCN, Sulfa Drugs GENERAL ORDERS: Chest 1V Urgent (09:48 09/21/2016 Gladis HAN) (Ack 9:53 Monica) (10:00 SReitz R.N.) Clinical Quality Assurance Specialist (Continuous) (:48 09/21/2016 Gladis HAN) (Ack 9:56 Monica) (9:59 SReitz R.N.) CBC w Diff Urgent (:09/21/2016 Gladis HAN) (Ack 9:53 Monica) (10:00 SReitz R.N.) CMP Urgent (:09/21/2016 Gladis HAN) (Ack 9:53 Monica) (10:00 SReitz R.N.) UA-Culture if indicated Urgent (:09/21/2016 Gladis HAN) (Ack 9:53 Monica) (10:00 SReitz R.N.) Amylase Urgent (:09/21/2016 Gladis HAN) (Ack 9:53 Monica) (10:00 SReitz R.N.) Lipase Urgent (:09/21/2016 Gladis HAN) (Ack 9:53 Monica) (10:00 SReitz R.N.) BNP Urgent (:09/21/2016 Gladis HAN) (Ack 9:53 Monica) (10:00 SReitz R.N.) CPK Urgent (:09/21/2016 Gladis HAN) (Ack 9:53 Monica) (10:00 SReitz R.N.) Troponin-I Urgent (:09/21/2016 Gladis HAN) (Ack 9:53 Monica) (10:00 SReitz R.N.) Oxygen (2 L/min) (NC) (:09/21/2016 Gladis HAN) (Ack 9:56 Monica) (10:14 MWinterer R.N.) Pulse oximeter (09:49 09/21/2016 Gladis HAN) (Ack 9:56 Monica) (10:00 SReitz R.N.) EKG - ER Stat (09:49 09/21/2016 Gladis HAN) (Ack 9:52 Monica) (10:00 SReitz R.N.) POC Glucose (09:49 09/21/2016 Gladis HAN) (Ack 9:53 Monica) (10:14 MWinterer R.N.) Acetone, Serum Urgent (10:12 09/21/2016 Gladis HAN) (Ack 10:16 Monica) (14:25 ALawrence ER Tech1) ABG (G) Urgent (10:12 09/21/2016 Gladis HAN) (Ack 10:15 Monica) (11:18 MWinterer R.N.) POC Glucose (Q 30 minutes) (10:14 09/21/2016 Gladis HAN) (Ack 10:27 Monica) (10:42 SReitz R.N.) Blood Culture (No) (N/A) Urgent (10:31 09/21/2016 Gladis HAN) (Ack 11:53 Monica) (14:25 ALawrence ER Tech1) Lactate, Serum Urgent (10:32 09/21/2016 Gladis HAN) (11:18 MWinterer R.N.) CT Head wo Cont Urgent (11:12 09/21/2016 Gladis HAN) (Ack 11:51 Moniac) (12:21 Imtiaz) CT Thorax/Abd/Pelvis wo Cont Urgent (11:12 09/21/2016 Gladis HAN) (Ack 11:51 Monica) (12:21 Imtiaz) CSF, Cell Count Urgent (11:14 09/21/2016 Gladis HAN) (Ack 11:51 Monica) (14:25 ALawrence ER Tech1) CSF, Culture Urgent (11:14 09/21/2016 Gladis HAN) (Ack 11:51 Monica) (14:25 ALawrence ER Tech1) CSF, Glucose Urgent (11:14 09/21/2016 Gladis HAN) (Ack 11:51 Monica) (14:25 ALawrence ER Tech1) CSF, Protein Urgent (11:14 09/21/2016 Gladis HAN) (Ack 11:51 Monica) (14:25 ALawrence ER Tech1) LP Tray (11:14 09/21/2016 Gladis HAN) (11:18 MWinterer R.N.) - (PTH) (12:08 09/21/2016 Gladis HAN) (Ack 12:55 Monica) (14:24 ALawrence ER Tech1) Magnesium Urgent (12:08 09/21/2016 Gladis HAN) (Ack 12:55 Monica) (14:24 ALawrence ER Tech1) ABG (G) Urgent (13:33 09/21/2016 Gladis HAN) (Ack 13:35 AMcQuoid ER Tech1) (13:57 SReitz R.N.) Glucose, Random Urgent (13:34 09/21/2016 AMcQuoid ER Tech1 verbal order read back to Gladis HAN) (Ack 13:35 AMcQuoid ER Tech1) (13:35 AMcQuoid ER Tech1) Calcium Urgent (13:34 09/21/2016 AMcQuoid ER Tech1 verbal order read back to Gladis HAN) (Ack 13:35 AMcQuoid ER Tech1) (13:35 AMcQuoid ER Tech1) MEDICATION ORDERS: IV FLUIDS: IV NS : initial bolus 500 mL (1000 mL/hr), then 125 mL/hr for 4h (NOW); Urgent (09:48 09/21/2016 Gladis HAN) (Ack 10:00 SReitz R.N.) (Cancelled: Other10:11 Gladis HAN) IV Saline Lock (09:49 09/21/2016 Gladis HAN) (Ack 10:00 SReitz R.N.) (10:26 KWilliams R.N.) IV NS : initial bolus 1000 mL (1000 mL/hr), then 1000 mL/hr for X3 (NOW); Urgent (10:11 09/21/2016 Gladis HAN) (Ack 10:14 MWinterer R.N.) (10:26 KWilliams R.N.) Insulin Reg Drip IV : initial bolus 10 units, then 2 units/hr for 4h (NOW); Urgent (10:13 09/21/2016 Gladis HAN) (10:45 Watson R.N.) (Cancelled: Other11:15 Gladis HAN) Zofran IV 8 mg (NOW) (10:59 09/21/2016 Watson TijerinaNLul verbal order read back to Gladis HAN) (11:00 Watson Penaloza.N.) Insulin Reg Drip IV : initial bolus 0 units, then 4 units/hr for 4h (HIGH ALERT MEDICATION, NOW) (11:15 09/21/2016 Gladis HAN) (Ack 11:18 Poornima R.N.) (12:32 Poornima R.N.) (Cancelled: Other14:11 Gladis HAN) Ceftriaxone IV 2 gm/50mL (NOW) (11:44 09/21/2016 Gladis HAN) (12:23 Alexander R.N.) Insulin Reg Drip IV : initial bolus 0 units, then 2 units/hr for 4h (NOW); Urgent (14:12 09/21/2016 Gladis HAN) (14:16 Watson Penaloza.N.) Reglan IV 10 mg (NOW) (14:36 09/21/2016 Gladis HAN) (14:40 Watson Li) ORDER SHEET NOTES: [Electronically signed by Last Newman MD (15:29 09/21/2016)] [Electronically signed by Natalie Newton R.N. (15:57 09/21/2016)] [Electronically locked/signed by Natalie Newton R.N. (15:57 09/21/2016)]
--- NOTE | 2016-09-21 13:43 | DIAGNOSTIC IMAGING REPORT ---
PROCEDURE: CT THORAX ABD PELVIS W/O CONT CLINICAL INDICATION: Sepsis. Elevated white blood count (20,800). Diabetes. TECHNIQUE: Noncontrast axial images with sagittal and coronal reformations. Intravenous contrast was not utilized due to compromised renal status (GFR 15). COMPARISON: Comparison is made to chest x-ray earlier today (09/21/2016) and abdominal ultrasound (07/06/2016). FINDINGS: THORAX: There is moderate to marked mucosal thickening of the mid and distal esophagus with fluid level of the proximal esophagus. There is mild to moderate chronic interstitial and parenchymal scarring in the lungs. Heart is of normal size. Marked of coronary vascular calcifications. Moderate calcified atheromatous changes of the aorta. There is a 3 cm x 2 cm lobulated ovoid left breast mass. Mild to moderate degenerative changes of the thoracic spine. ABDOMEN: Cholecystectomy (surgical clips). Marked calcified atheromatous changes aorta, but no evidence of aneurysm. Liver, spleen, pancreas, are normal. Kidneys are of normal size (9.4 cm, left 10.4 cm) with 0.5 mm of punctate calcification in the lower pole left kidney. There is a 1.5 cm low density left adrenal nodule (11 HU). Bowel pattern is normal. Appendix is not clearly identified, no evidence of inflammatory process. Moderate degenerative change of the lumbar spine. PELVIS: Uterus and right adnexal region appears normal. There is a 3.1 cm left ovarian cyst. Marked calcified atheromatous changes of the iliac and femoral vessels. IMPRESSION: 1. Moderate mucosal thickening of the distal esophagus with fluid distention of the proximal esophagus. Consider reflux esophagitis or esophageal mass/neoplasm. 2. Moderate chronic parenchymal scarring in the lungs. 3. Marked coronary vascular calcifications. 4. There is a 3 cm left breast mass. Consider benign or malignant neoplasm. Further work up and/or biopsy is recommended (as clinically indicated). 5. Status post cholecystectomy. 6. There is 1.5 cm low density left adrenal nodule consistent with benign adenoma. 7. There is a 0.5 mm nonobstructing calculus in the lower pole left kidney. 8. Marked calcified atheromatous changes aorta and iliofemoral vessels. 9. There is a 3.1 cm left ovarian cyst. Follow-up ultrasound after the patient's acute illness is recommended to further evaluate (3-4 weeks). 10. Findings discussed with Dr. Newman. All CT scans at this facility use dose modulation, iterative reconstruction, and/or weight-based dosing when appropriate to reduce radiation dose to as low as reasonably achievable.
--- NOTE | 2016-09-21 15:58 | ED DISCHARGE INSTRUCTIONS ---
Patient: NIKOLAY BARBOSA General Instructions [facility] VisitID: [id number] [address] [place] [address] 76y, F Registration Date/Time: 09/21/2016 Sepsis. Renal insufficiency. Abnormal tests: (CSF). diabetic hyperglycemic and hyperosmolar ketotic state without acidosis. (Electronically signed by Last Newman MD 09/21/2016 15:29)
--- NOTE | 2016-09-21 15:58 | ED MED RECONCILIATION SUMMARY ---
Patient: NIKOLAY BARBOSA Medication Reconciliation Report [facility] VisitID: [id number] [address] [place] [address] 76y, F Registration Date/Time: 09/21/2016 Weight: 58.9 kg Height/Length: 60 in. BMI: 25.4 ALLERGIES: PCN, Sulfa Drugs The patient's Home Medications are listed below: THE FOLLOWING MEDICATIONS NEED TO BE RECONCILED: Amitriptyline HCl Oral 10 mg, at bedtime Fosamax Oral 70 mg, weekly Gabapentin Oral 600mg tid Hydrochlorothiazide Oral (25 mg) 1 tablet, daily Insulin Regular Human Injection 20units morn, 30units noon, 30units leslye Lantus Subcutaneous 40units , 2x a day Levothyroxine Sodium Oral 88 mcg, daily Lisinopril Oral 40 mg, 2x a day Metoprolol Succinate ER Oral (25 mg) 1 tablet, 50mg , day Ranitidine HCl Oral 150 mg, daily Zetia Oral (10 mg) 1 tablet, day The source(s) of the original Home Medication information: Not obtained. The following Medications were given to the patient in the Emergency Department: IV NS IV Fluids bolus 0, then 999 mL/hr, administered: 09/21/2016 10:21:00 AM Insulin Reg [IV DRIP] Drip IV bolus 0, then 2 unit 2 unit/hr, administered: 09/21/2016 10:42:00 AM Zofran [IVP] IVP 8 mg, administered: 09/21/2016 11:00:00 AM Ceftriaxone [IVPB] IVPB bolus 0, then 2 gm 100 mL/hr, administered: 09/21/2016 12:22:00 PM Insulin Reg [IV DRIP] Drip IV bolus 0, then 4 unit 4 unit/hr, administered: 09/21/2016 11:20:00 AM IV NS IV Fluids bolus 0, then 100 mL/hr, administered: 09/21/2016 12:56:00 PM Insulin Reg [IV DRIP] Drip IV bolus 0, then 2 unit 2 unit/hr, administered: 09/21/2016 2:14:00 PM Reglan [IVP] IVP 10 mg, administered: 09/21/2016 2:40:00 PM The following Medications were prescribed to the patient: None.
--- NOTE | 2016-09-21 15:58 | ED DISCHARGE INSTRUCTIONS ---
Patient: NIKOLAY BARBOSA General Instructions [facility] VisitID: [id number] [address] [place] [address] 76y, F Registration Date/Time: 09/21/2016 Sepsis. Renal insufficiency. Abnormal tests: (CSF). diabetic hyperglycemic and hyperosmolar ketotic state without acidosis. (Electronically signed by Last Newman MD 09/21/2016 15:29)
--- NOTE | 2016-09-21 15:58 | ED MED RECONCILIATION SUMMARY ---
Patient: NIKOLAY BARBOSA Medication Reconciliation Report [facility] VisitID: [id number] [address] [place] [address] 76y, F Registration Date/Time: 09/21/2016 Weight: 58.9 kg Height/Length: 60 in. BMI: 25.4 ALLERGIES: PCN, Sulfa Drugs The patient's Home Medications are listed below: THE FOLLOWING MEDICATIONS NEED TO BE RECONCILED: Amitriptyline HCl Oral 10 mg, at bedtime Fosamax Oral 70 mg, weekly Gabapentin Oral 600mg tid Hydrochlorothiazide Oral (25 mg) 1 tablet, daily Insulin Regular Human Injection 20units morn, 30units noon, 30units leslye Lantus Subcutaneous 40units , 2x a day Levothyroxine Sodium Oral 88 mcg, daily Lisinopril Oral 40 mg, 2x a day Metoprolol Succinate ER Oral (25 mg) 1 tablet, 50mg , day Ranitidine HCl Oral 150 mg, daily Zetia Oral (10 mg) 1 tablet, day The source(s) of the original Home Medication information: Not obtained. The following Medications were given to the patient in the Emergency Department: IV NS IV Fluids bolus 0, then 999 mL/hr, administered: 09/21/2016 10:21:00 AM Insulin Reg [IV DRIP] Drip IV bolus 0, then 2 unit 2 unit/hr, administered: 09/21/2016 10:42:00 AM Zofran [IVP] IVP 8 mg, administered: 09/21/2016 11:00:00 AM Ceftriaxone [IVPB] IVPB bolus 0, then 2 gm 100 mL/hr, administered: 09/21/2016 12:22:00 PM Insulin Reg [IV DRIP] Drip IV bolus 0, then 4 unit 4 unit/hr, administered: 09/21/2016 11:20:00 AM IV NS IV Fluids bolus 0, then 100 mL/hr, administered: 09/21/2016 12:56:00 PM Insulin Reg [IV DRIP] Drip IV bolus 0, then 2 unit 2 unit/hr, administered: 09/21/2016 2:14:00 PM Reglan [IVP] IVP 10 mg, administered: 09/21/2016 2:40:00 PM The following Medications were prescribed to the patient: None.
--- NOTE | 2016-09-21 15:58 | ED MAR SUMMARY ---
..... Medication Administration Record [facility] [address] [facility] [place] [address] Patient: NIKOLAY BARBOSA Visit ID: [id number] 76y, F Weight: 58.9 kg Height/Length: 60 in BMI: 25.4 ALLERGIES: PCN, Sulfa Drugs Start 10:21 09/21/2016 Colton Osborne RIssac, Stop 12:56 09/21/2016 Natalie Newton R.N. Medication Administered: IV NS (SALINE), Dose: IV Fluids over 1 hour(s), Rate: 999 mL/hr, Dispensed: 1000 mL bag, Site: #1 right wrist. Medication Ordered: IV NS : initial bolus 1000 mL (1000 mL/hr), then 1000 mL/hr for X3 (NOW); Urgent. Start 10:42 09/21/2016 Natalie Newton R.N. Medication Administered: INSULIN REG [IV DRIP], Dose: 2 unit Drip IV over 50 hour(s), Rate: 2 unit/hr, Dispensed: 100 mL bag, Site: #1 right wrist. Medication Ordered: Insulin Reg Drip IV : initial bolus 10 units, then 2 units/hr for 4h (NOW); Urgent. Given 11:00 09/21/2016 Natalie Newton R.N. Medication Administered: ZOFRAN [IVP] (ONDANSETRON HCL), Dose: 8 mg IVP over 2 minute(s), Site: #2 left AC. Medication Ordered: Zofran IV 8 mg (NOW). Start 11:20 09/21/2016 Anali Perea R.N. Medication Administered: INSULIN REG [IV DRIP], Dose: 4 unit Drip IV over 4 hour(s), Rate: 4 unit/hr, Dispensed: 100 mL bag, Site: #1 right wrist. Medication Ordered: Insulin Reg Drip IV : initial bolus 0 units, then 4 units/hr for 4h (HIGH ALERT MEDICATION, NOW). Start 12:22 09/21/2016 Joana Mims R.N., Stop 12:47 09/21/2016 Natalie Newton R.N. Medication Administered: CEFTRIAXONE [IVPB], Dose: 2 gm IVPB over 30 minute(s), Rate: 100 mL/hr, Dispensed: 50 mL bag, Site: #2 left AC. Medication Ordered: Ceftriaxone IV 2 gm/50mL (NOW). Start 12:56 09/21/2016 Natalie Newton R.N., Continued Upon Transfer 14:42 09/21/2016 Natalie Newton R.N. Medication Administered: IV NS (SALINE), Dose: IV Fluids over 5 hour(s), Rate: 100 mL/hr, Dispensed: 1000 mL bag, Site: #1 right wrist. Medication Ordered: IV NS : initial bolus 1000 mL (1000 mL/hr), then 1000 mL/hr for X3 (NOW); Urgent. Start 14:14 09/21/2016 Natalie Newton R.N., Continued Upon Transfer 14:43 09/21/2016 Natalie Newton R.N. Medication Administered: INSULIN REG [IV DRIP], Dose: 2 unit Drip IV over 4 hour(s), Rate: 2 unit/hr, Dispensed: 100 mL bag, Site: #1 right wrist. Medication Ordered: Insulin Reg Drip IV : initial bolus 0 units, then 2 units/hr for 4h (NOW); Urgent. Given 14:40 09/21/2016 Natalie Newton R.NLul Medication Administered: REGLAN [IVP] (METOCLOPRAMIDE HCL), Dose: 10 mg IVP over 2 minute(s), Site: #2 left AC. Medication Ordered: Reglan IV 10 mg (NOW).
--- NOTE | 2016-09-21 15:58 | ED MAR SUMMARY ---
..... Medication Administration Record [facility] [address] [facility] [place] [address] Patient: NIKOLAY BARBOSA Visit ID: [id number] 76y, F Weight: 58.9 kg Height/Length: 60 in BMI: 25.4 ALLERGIES: PCN, Sulfa Drugs Start 10:21 09/21/2016 Colton Osborne RIssac, Stop 12:56 09/21/2016 Natalie Newton R.N. Medication Administered: IV NS (SALINE), Dose: IV Fluids over 1 hour(s), Rate: 999 mL/hr, Dispensed: 1000 mL bag, Site: #1 right wrist. Medication Ordered: IV NS : initial bolus 1000 mL (1000 mL/hr), then 1000 mL/hr for X3 (NOW); Urgent. Start 10:42 09/21/2016 Natalie Newton R.N. Medication Administered: INSULIN REG [IV DRIP], Dose: 2 unit Drip IV over 50 hour(s), Rate: 2 unit/hr, Dispensed: 100 mL bag, Site: #1 right wrist. Medication Ordered: Insulin Reg Drip IV : initial bolus 10 units, then 2 units/hr for 4h (NOW); Urgent. Given 11:00 09/21/2016 Natalie Newton R.N. Medication Administered: ZOFRAN [IVP] (ONDANSETRON HCL), Dose: 8 mg IVP over 2 minute(s), Site: #2 left AC. Medication Ordered: Zofran IV 8 mg (NOW). Start 11:20 09/21/2016 Anali Perea R.N. Medication Administered: INSULIN REG [IV DRIP], Dose: 4 unit Drip IV over 4 hour(s), Rate: 4 unit/hr, Dispensed: 100 mL bag, Site: #1 right wrist. Medication Ordered: Insulin Reg Drip IV : initial bolus 0 units, then 4 units/hr for 4h (HIGH ALERT MEDICATION, NOW). Start 12:22 09/21/2016 Joana Mims R.N., Stop 12:47 09/21/2016 Natalie Newton R.N. Medication Administered: CEFTRIAXONE [IVPB], Dose: 2 gm IVPB over 30 minute(s), Rate: 100 mL/hr, Dispensed: 50 mL bag, Site: #2 left AC. Medication Ordered: Ceftriaxone IV 2 gm/50mL (NOW). Start 12:56 09/21/2016 Natalie Newton R.N., Continued Upon Transfer 14:42 09/21/2016 Natalie Newton R.N. Medication Administered: IV NS (SALINE), Dose: IV Fluids over 5 hour(s), Rate: 100 mL/hr, Dispensed: 1000 mL bag, Site: #1 right wrist. Medication Ordered: IV NS : initial bolus 1000 mL (1000 mL/hr), then 1000 mL/hr for X3 (NOW); Urgent. Start 14:14 09/21/2016 Natalie Newton R.N., Continued Upon Transfer 14:43 09/21/2016 Natalie Newton R.N. Medication Administered: INSULIN REG [IV DRIP], Dose: 2 unit Drip IV over 4 hour(s), Rate: 2 unit/hr, Dispensed: 100 mL bag, Site: #1 right wrist. Medication Ordered: Insulin Reg Drip IV : initial bolus 0 units, then 2 units/hr for 4h (NOW); Urgent. Given 14:40 09/21/2016 Natalie Newton R.NLul Medication Administered: REGLAN [IVP] (METOCLOPRAMIDE HCL), Dose: 10 mg IVP over 2 minute(s), Site: #2 left AC. Medication Ordered: Reglan IV 10 mg (NOW).
== END 2016-09-21 15:15 | disposition short-term general hospital (02) ==
LOC: ED SRH 09:19
DX: A41.9 Sepsis, unspecified organism (principal); R83.9 Unspecified abnormal finding in cerebrospinal fluid; E11.65 Type 2 diabetes mellitus with hyperglycemia; E11.00 Type 2 diabetes mellitus with hyperosmolarity without nonketotic hyperglycemic-hyperosmolar coma (NKHHC); N28.9 Disorder of kidney and ureter, unspecified; I10 Essential (primary) hypertension; Z79.4 Long term (current) use of insulin; Z79.84 Long term (current) use of oral hypoglycemic drugs; Z79.899 Other long term (current) drug therapy; Z88.0 Allergy status to penicillin; Z88.2 Allergy status to sulfonamides
CPT/HCPCS: 90004; 90065; 90074; 90098; 90100; 90134; 90301; 90309; 90469; 90616; 90627; 91171; 91320; 91643; 92031; 92070; 92235; 92530; 92570; 92610; 92652; 92653; 92720; 95029; 95030; 95059